=== PATIENT | female | born 1955 | race Caucasian/White ===

== ENCOUNTER 2019-12-22 07:46 | Outpatient (CLI) | payer BC, SELFPAY ==
--- NOTE | ~2019-12-22 | MM_ITS ---
EXAMINATION: MM screening [facility] BI w surinder HISTORY: Screening TECHNIQUE: Craniocaudal and mediolateral oblique 3-D tomosynthesis images were obtained and synthetic 2-D images were generated. CAD analysis was submitted and interpreted. COMPARISON: Comparison to multiple prior studies sequentially, with oldest reviewed study dated 11/10. BREAST PARENCHYMAL COMPOSITION: Breast composed of scattered areas of fibroglandular density. FINDINGS: There are stable benign-appearing bilateral breast calcifications. There are developing asy mmetry in the central aspect of the right breast, best seen on MLO view. No new masses, calcification s or architectural distortion in the left breast to suggest malignancy. IMPRESSION: 1. Developing right breast asymmetry. 2. Additional mammographic views and possible breast ultrasound are recommended. BI-RADS Category 0: Incomplete: Needs additional imaging evaluation. Reviewed, dictated and finalized at location A. IMPRESSION: 1. Developing right breast asymmetry. 2. Additional mammographic views and possible breast ultrasound are recommended . BI-RADS Category 0: Incomplete: Needs additional imaging evaluation.
== END 2019-12-22 07:47 | disposition home or self-care (01) ==
LOC: ANHIMG 07:47
PROVIDERS: PCP Family Medicine; Visit Provider Family Medicine
DX: Z12.31 Encounter for screening mammogram for malignant neoplasm of breast (principal); R92.8 Other abnormal and inconclusive findings on diagnostic imaging of breast
CPT/HCPCS: 77063; 77067

== ENCOUNTER 2020-01-13 11:19 | Outpatient (CLI) | payer BC, SELFPAY ==
--- NOTE | ~2020-01-13 | MMUS_ITS ---
EXAMINATION: MM diagnostic mammo unilat RT, US breast RT limited HISTORY: Right breast asymmetry on screening mammogram TECHNIQUE: Additional 3-D tomosynthesis images of the right breast were performed and synthetic 2-D i mages were generated. CAD analysis was submitted and interpreted. High resolution limited right breas t ultrasound was performed. COMPARISON: Prior mammograms dating back to 11/10/2012 FINDINGS: MAMMOGRAPHIC FINDINGS: An asymmetry is present in the anterior/middle third of the outer breast which has a stable appearanc e compared to prior mammograms. No suspicious mass, calcification, or architectural distortion are id entified. ULTRASOUND: There is no evidence of suspicious cystic or solid mass in the vicinity of the mammographic finding i n question. IMPRESSION: 1. No mammographic or sonographic evidence of malignancy. 2. Recommend routine screening mammography in one year. BI-RADS Category 2: Benign finding(s). Reviewed, dictated and finalized at location A. IMPRESSION: 1. No mammographic or sonographic evidence of malignancy. 2. Recommend routine screening mammography in one year. BI-RADS Category 2: Benign finding(s).
== END 2020-01-13 11:20 | disposition home or self-care (01) ==
LOC: ANHIMG 11:28
PROVIDERS: PCP Family Medicine; Visit Provider Family Medicine
DX: R92.8 Other abnormal and inconclusive findings on diagnostic imaging of breast (principal)
CPT/HCPCS: 76642; 77065

== ENCOUNTER → 2020-11-17 01:23 | Outpatient (CLI) | payer MEDICARE, SELFPAY ==
[2020-11-17 21:01] LABS: SARS-CoV-2 RNA PCR Negative
== END ==
PROVIDERS: PCP Family Medicine; Visit Provider Physician Assistant
DX: Z20.822 Contact with and (suspected) exposure to COVID-19 (principal)
CPT/HCPCS: C9803; U0003; U0005

== ENCOUNTER 2021-01-08 15:17 | Outpatient (CLI) | payer MEDICARE, BC, SELFPAY ==
--- NOTE | ~2021-01-08 | MM_ITS ---
EXAMINATION: MM screening [facility] BI w surinder HISTORY: Screening mammogram TECHNIQUE: Craniocaudal and mediolateral oblique 3-D tomosynthesis images were obtained and synthetic 2-D images were generated. CAD analysis was submitted and interpreted. COMPARISON: No prior mammogram is available for comparison at this institution. BREAST PARENCHYMAL COMPOSITION: There are scattered areas of fibroglandular density. FINDINGS: Numerous benign punctate microcalcifications of both breasts are again noted. Suggestion of breast masses in the mid to lower outer right breast (MLO Tomosynthesis image ). Di agnostic right mammogram and right breast ultrasound examination are recommended. Otherwise there is no evidence of suspicious mass, calcification, or architectural distortion to sugg est malignancy in either breast. There has been no other suspicious interval change. IMPRESSION: 1. Suggestion of right breast masses 2. Diagnostic right mammogram and right breast ultrasound examination are recommended. BI-RADS Category 0: Incomplete: Needs additional imaging evaluation. Reviewed, dictated and finalized at location A. IMPRESSION: 1. Suggestion of right breast masses 2. Diagnostic right mammogram and right breast ultrasound examination are recom mended. BI-RADS Category 0: Incomplete: Needs additional imaging evaluation.
== END 2021-01-08 15:18 | disposition home or self-care (01) ==
LOC: ANHIMG 15:20
PROVIDERS: PCP Family Medicine; Visit Provider Family Medicine
DX: Z12.31 Encounter for screening mammogram for malignant neoplasm of breast (principal); R92.8 Other abnormal and inconclusive findings on diagnostic imaging of breast
CPT/HCPCS: 77063; 77067

== ENCOUNTER 2021-01-25 11:59 | Outpatient (CLI) | payer MEDICARE, BC, SELFPAY ==
--- NOTE | ~2021-01-25 | MMUS_ITS ---
EXAMINATION: MM diagnostic lucila RT w surinder, US breast RT complete HISTORY: Suggestion of right breast masses on 01/08/2021 screening mammogram TECHNIQUE: Additional 3-D tomosynthesis images of the right breast were performed and synthetic 2-D i mages were generated. CAD analysis was submitted and interpreted. High resolution complete right akin st ultrasound including all 4 quadrants and subareolar area was performed. COMPARISON: 01/08/2021 screening mammogram 01/13/2020 diagnostic right mammogram and limited right breast ultrasound 12/22/2019 screening mammogram BREAST PARENCHYMAL COMPOSITION: There are scattered areas of fibroglandular density. FINDINGS: MAMMOGRAPHIC FINDINGS: Again noted is a focal area of increased density in the anterior central right breast on ML and MLO v iews, without apparent correlate on the CC view. There are scattered benign calcifications. ULTRASOUND: There is no evidence of suspicious solid mass lesion or suspicious shadowing of the right breast. At 6:00 near the nipple there is a 4 mm simple cyst. IMPRESSION: 1. No mammographic evidence of malignancy 2. Routine annual mammographic screening is recommended BI-RADS Category 2: Benign finding(s). Reviewed, dictated and finalized at location A. 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 No mammographic evidence of malignancy 2. Routine annual mammographic screening is recommended BI-RADS Category 2: Benign finding(s).
== END 2021-01-25 12:00 | disposition home or self-care (01) ==
LOC: ANHIMG 12:00
PROVIDERS: PCP Family Medicine; Visit Provider Family Medicine
DX: R92.8 Other abnormal and inconclusive findings on diagnostic imaging of breast (principal); N60.01 Solitary cyst of right breast
CPT/HCPCS: 76641; 77061; 77065; G0279

== ENCOUNTER → 2021-05-06 12:04 | Outpatient (CLI) | payer MEDICARE, SELFPAY ==
--- NOTE | ~2021-05-06 | XR_ITS ---
XR lumbar spine 2-3V 05/06/2021 12:35 Indication: Low back pain Procedure: 3 views lumbar spine Comparison: No prior studies for comparison. Findings: Mild dextrocurvature of the lumbar spine. There is disc narrowing at all lumbar levels, mos t advanced at L5-S1. There is multilevel facet hypertrophy with grade 1 degenerative spondylolisthesi s at L4-5. No fracture, subluxation or dislocation. There are cholecystectomy clips. Sacral foramen a re symmetric. There is atherosclerosis of the aorta. Impression: 1: Moderate lumbar spondylosis. Reviewed, dictated and finalized at location B. COORDINATOR Impression: 1: Moderate lumbar spondylosis.
--- NOTE | ~2021-05-06 | XR_ITS ---
XR hip LT 2V w AP pelvis 05/06/2021 12:35 Indication: Left hip pain Procedure: 3 views left hip Comparison: No prior studies for comparison. Findings: No fracture, subluxation or dislocation. Pelvic rings are intact. Sacral foramen are symmet jennifer. No significant soft tissue abnormality. Impression: 1: No acute bone or joint abnormality. Reviewed, dictated and finalized at location B. EWATER ANALYST Impression: 1: No acute bone or joint abnormality.
== END ==
PROVIDERS: PCP Family Medicine; Visit Provider Physician Assistant
DX: M79.605 Pain in left leg (principal); M47.896 Other spondylosis, lumbar region
CPT/HCPCS: 72100; 73502

== ENCOUNTER → 2021-05-13 10:49 | Outpatient (CLI) | payer MEDICARE, SELFPAY ==
--- NOTE | ~2021-05-13 | MR_ITS ---
EXAMINATION: MR lumbar spine wo con DATE: 05/13/2021 11:28 INDICATION: Low back pain. Left leg pain. TECHNIQUE: Magnetic resonance imaging (MRI) of the lumbar spine was performed without intravenous con trast. Sequences included sagittal T2-weighted FSE, sagittal T2-weighted FS FSE, sagittal T1-weighted FSE, and axial T2-weighted FSE. COMPARISON: Lumbar spine radiographs 05/06/2021 FINDINGS: There is 5 degrees dextrocurvature of lumbar spine. Vertebral body heights are normal. Ther e is mildly decreased disc height at L1-L2 and L3-L4 and severely decreased disc height at L5-S1. The distal spinal cord signal intensity is normal. The conus medullaris is at L1-L2. The following disc levels are specifically discussed: L1-L2: The disc is bulging. There is mild right facet joint osteoarthritis. There is no neural forami nal stenosis. There is mild central canal stenosis. L2-L3: The disc is bulging. There is mild right facet joint osteoarthritis. There is mild right neura l foraminal stenosis. There is mild central canal stenosis. L3-L4: The disc is bulging with superimposed left central extrusion with extension 2.0 cm superior ex tension and involvement of the left subarticular and foraminal zones with mass effect on the exiting left L3 nerve root. There is moderate bilateral facet joint osteoarthritis. There is mild bilateral n eural foraminal stenosis. There is mild central canal stenosis. L4-L5: The disc is bulging and has an annular fissure. There is moderate bilateral facet joint osteoa rthritis. There is mild bilateral neural foraminal stenosis. There is mild central canal stenosis. L5-S1: The disc is bulging and has an annular fissure. There is mild bilateral facet joint osteoarthr itis. There is mild right and moderate left neural foraminal stenosis. There is no central canal sten osis. IMPRESSION: 1. Severe lumbar spondylosis. Of note, an extrusion at L3-L4 exerts mass effect on the exiting left L 3 nerve root. Reviewed, dictated and finalized at location A. CTOR OF LAND IMPRESSION: 1. Severe lumbar spondylosis. Of note, an extrusion at L3-L4 exerts mass effect on the exiting left L3 nerve root.
== END ==
PROVIDERS: PCP Family Medicine; Visit Provider Physician Assistant
DX: M79.605 Pain in left leg (principal); M25.559 Pain in unspecified hip; M47.26 Other spondylosis with radiculopathy, lumbar region; M51.26 Other intervertebral disc displacement, lumbar region
CPT/HCPCS: 72148

== ENCOUNTER → 2022-04-01 13:34 | Outpatient (CLI) | payer MEDICARE, SELFPAY ==
--- NOTE | ~2022-04-01 | XR_ITS ---
XR shoulder RT min 2V DATE: 04/01/2022 13:53 INDICATION: Right shoulder pain TECHNIQUE: 4 views of right shoulder COMPARISON: None FINDINGS: There is evidence of rotator cuff atrophy. There is Mild degenerative change at the right acromioclavicular joint. No fracture, dislocation, periosteal reaction or bone destruction or abnormal soft tissue calcificati on. IMPRESSION: Mild degenerative change Probable rotator cuff atrophy Reviewed, dictated and finalized at location L. ECONOMIST
== END ==
PROVIDERS: PCP Emergency Medicine; Visit Provider Physician Assistant
DX: M25.511 Pain in right shoulder (principal); R93.6 Abnormal findings on diagnostic imaging of limbs
CPT/HCPCS: 73030

== ENCOUNTER 2022-04-10 12:35 | Emergency (ER) | payer MEDICARE, BC, SELFPAY ==
[2022-04-10] VITALS (21 sets, daily range): BP systolic 139–157; BP diastolic 70–78; PULSE 75–86; RESP 12–21; TEMP 36.9; O2SAT 99
--- NOTE | ~2022-04-10 | CT_ITS ---
EXAMINATION: CT abdomen pelvis w con DATE: 04/10/2022 14:11 INDICATION: Headache, nausea and vomiting TECHNIQUE: Computed tomography (CT) of the abdomen and pelvis was performed with 100 mL Omnipaque-350 intravenous contrast. Automated exposure control and iterative reconstruction technique were employe d. The dose-length product was 293.06 mGy-cm. COMPARISON: None FINDINGS: Mild discoid atelectasis at the lingula and right middle lobe. Heart size is normal. No pericardial o r pleural effusion. Small sliding-type hiatal hernia. Mild focal hepatic steatosis at the ligamentum teres. Cholecystectomy clips the gallbladder fossa. Spleen, pancreas, bilateral adrenal glands and le ft kidney are normal. 11 mm cyst at the upper pole of the right kidney. Bladder is normal. The uterus is not identified and has likely been surgically resected. Bowels including the appendix are normal. There is calcified atherosclerosis of the aorta and many of the other arteries. No free intraperiton eal gas or fluid. No pathologically enlarged abdominal or pelvic lymphadenopathy. Mild lumbar dextroc urvature with severe lumbosacral spondylosis. IMPRESSION: 1. No acute intra-abdominal/pelvic process. 2. Small sliding-type hiatal hernia. Reviewed, dictated and finalized at location L. R PV INSTALLER
[2022-04-10] MEDS: SODIUM CHLORIDE 0.9% IV 1,000 ML 999 ML IV CONT ×2 (13:07→15:03)
[2022-04-10] MEDS: ONDANSETRON INJ 4 MG/2 ML VIAL IV PUSH (13:07)
--- NOTE | 2022-04-10 13:07 | ED.ABDPAIN ---
HPI - Abdominal Pain General Chief Complaint: Abdominal Pain Stated Complaint: abd pain, N/V, headache Time Seen by Provider: 04/10/22 12:49 Source: RN notes reviewed History of Present Illness HPI narrative: Patient presents emergency department from home for abdominal pain. Patient states symptoms been ongoing for the past 3 days she states she is had pain across the upper abdomen described as aching in nature's been associated with numerous episodes of nausea and vomiting. States that this has been associated with subjective fevers as well as a headache she denies any chest pain or shortness of breath she denies any diarrhea states she has not had a measured temperature but is been feeling hot. Patient denies take any medication for her symptoms Related Data Home Medications Medication Instructions Recorded Confirmed cholecalciferol (vitamin D3) 25 2,000 unit PO DAILY 02/14/19 04/08/22 mcg (1,000 unit) capsule cyanocobalamin (vitamin B-12) 1,000 mcg PO DAILY 02/14/19 04/08/22 1,000 mcg capsule azelastine 137 mcg (0.1 %) nasal 137 mcg intranasal Q12H 11/11/21 04/08/22 spray aerosol ketoconazole 2 % topical cream 1 applic topical DAILY PRN 11/11/21 04/08/22 krill oil-hyaluronic cap PO 11/11/21 04/08/22 acid-astaxanthin 353 mg capsule (Move Free Ultra [place] Joint Plus) vit cap PO 11/11/21 04/08/22 C,E,zinc,Gb-lgkyn-1-lutein-zeaxanthin 250 mg-2.5 mg-0.5 mg capsule omeprazole 40 mg capsule,delayed 40 mg PO 03/13/22 04/08/22 release triamcinolone acetonide 0.1 % 1 applic topical .prn 04/07/22 04/08/22 topical cream Allergies Allergy/AdvReac Type Severity Reaction Status Date / Time cephalexin Allergy Unknown ill Verified 04/07/22 11:07 Penicillins Allergy Unknown in college Verified 04/07/22 11:07 Sulfa (Sulfonamide Allergy Unknown Skin Verified 04/07/22 11:07 Antibiotics) Reaction Review of Systems Review of Systems: Gen.: Reports subjective fevers ENT: Denies congestion Respiratory: Denies shortness of breath or cough CV: Denies chest pain or palpitations GI: See HPI denies burning, urgency, frequency or hematuria Musculoskeletal: Denies back pain or muscle pain Neuro: Reports Skin: Denies rash Except as documented, all other systems reviewed and negative [facility] Past Medical History Medical History Abnormal colonoscopy (~2006) 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 Normal colonoscopy (~2011) Surgical History Surgical History H/O: hysterectomy (~1980) Hx of cholecystectomy (~2001) Family History Family History Mother Family history of osteoporosis Family history of elevated blood lipids Family history of arthritis Father Hypertension Patient's father is Other No family history of allergies No family history of cardiovascular disease No family history of diabetes mellitus No family history of hypertension No family history of malignant neoplasm Social History Social History Smoking status: Never smoker Second hand tobacco smoke exposure: No Alcohol intake: current Substance use: never Substance use type: does not use Lack of Transportation: No Lack of Food: Never True Current Housing: I Have Housing Concerned About Future Housing: No Difficulty Paying Gas/Electric Bills: No Difficulty Paying for Meds: No Currently Unemployed: No Education: Master's Degree or Higher Difficulty w/ Childcare or Family Care: No Gender identity (if verbalized by the patient): Female Exam Narrative: APPEARANCE: No acute distress, nontoxic, resting in bed HEENT: Normocephalic, atraumatic, OMM RESPIRATORY: No respiratory distress, clear to auscultation bilaterally with no rhonchi wheezing
[2022-04-10 13:31] LABS: Basophils Percent Auto 0.3 % (0.2-1.2); Eosinophils Percent Auto 0.3 % (0-4.4); Hematocrit 46.4 % (37.0-47.0); Hemoglobin 15.3 g/dL (12.0-15.0); Immature Granulocyte Absolute 0.05 K/mm3 (0.00-0.031); Immature Granulocyte Percent A 0.4 % (0-0.5); Lymphocytes Absolute Auto 1.18 K/mm3 (0.9-3.2); Lymphocytes Percent Auto 10.2 % (18.3-44.2); Mean Corpuscular Hemoglobin 28.8 pg (26-34); Mean Corpuscular Volume 87.4 fl (80-100); Mean Platelet Volume 9.7 fl (7.4-10.4); Monocytes Percent Auto 8.4 % (2.6-8.5); Neutrophils Absolute Auto 9.3 K/mm3 (1.3-6.7); Neutrophils Percent Auto 80.4 % (45.5-73.1); Platelet Count Result 339 k/mm3 (150-375); Red Blood Count 5.31 M/mm3 (4.2-5.4); Red Cell Distribution Width 13.6 % (11.5-14.5); White Blood Count 11.6 K/mm3 (4.5-10.0)
[2022-04-10 13:46] LABS: Alanine Aminotransferase 18 U/L (6-35); Albumin Level 4.5 g/dL (3.5-5.1); Alkaline Phosphatase 63 U/L (38-126); Anion Gap 8 mmol/L (8-16); Aspartate Amino Transferase 24 U/L (14-36); Bilirubin,Total 0.9 mg/dL (0.2-1.3); Blood Urea Nitrogen 21 mg/dL (7-17); Calcium 8.9 mg/dL (8.4-10.2); Carbon Dioxide 25 mmol/L (22-30); Chloride 101 mmol/L (98-107); Estimated CRCL calculation 85 ml/min; Estimated Glomerular Filt Rate > 60; Glucose 145 mg/dL (65-110); Lipase 47 U/L (23-300); Potassium 3.3 mmol/L (3.4-5.0); Sodium 134 mmol/L (137-145)
[2022-04-10 14:05] LABS: Appearance Urine Slightly Cloudy (Clear); Bilirubin Urine 2+ (Negative); Blood Urine 1+ (Negative); Color Urine Yellow (Yellow); Glucose Urine UA 2+ mg/dL (Negative); Ketones Urine 4+ mg/dL (Negative); Leukocyte Esterase Ur Negative LEU/UL (Negative); Nitrate Urine Negative (Negative); Protein Urine 2+ mg/dL (Negative); Specific Grav Ur >= 1.030 (1.001-1.035); Urobilinogen Urine 0.2 mg/dL (<2.0)
[2022-04-10 14:13] LABS: Bacteria Urine Trace /hpf; Mucus Urine Few /lpf; Squamous Epithelial Cell Urine Moderate /hpf (Few)
[2022-04-10 14:20] LABS: Influenza A QL RT-PCR Negative (Negative); Influenza B QL RT-PCR Negative (Negative); SARS-CoV-2 RNA PCR Negative
[2022-04-10 14:33] LABS: Add Urine Microscopic? YES
[2022-04-10] MEDS: POTASSIUM CHLORIDE 20 MEQ PACKET (FOR LIQUID) PO (16:40)
== END 2022-04-10 18:58 | disposition home or self-care (01) ==
PROVIDERS: Emergency Provider Emergency Medicine; PCP Emergency Medicine
DX: R10.13 Epigastric pain (principal); R11.2 Nausea with vomiting, unspecified; Z90.710 Acquired absence of both cervix and uterus; Z20.822 Contact with and (suspected) exposure to COVID-19; K44.9 Diaphragmatic hernia without obstruction or gangrene
CPT/HCPCS: 36415; 74177; 80053; 81001; 83690; 85025; 87636; 96361; 96365; 96375; 99284; A9270; J0131; J2405; J7030; Q9967

== ENCOUNTER 2022-04-14 10:36 | Outpatient (CLI) | payer MEDICARE, BC, SELFPAY ==
--- NOTE | ~2022-04-14 | MR_ITS ---
EXAMINATION: MR shoulder RT wo con DATE: 04/14/2022 11:25 INDICATION: Right shoulder pain TECHNIQUE: Magnetic resonance imaging (MRI) of the right shoulder was performed without intravenous c ontrast. Sequences included axial PD-weighted FS FSE, coronal oblique PD-weighted FS FSE, coronal obl ique T2-weighted FS FSE, sagittal PD-weighted FS FSE, and sagittal T1-weighted SE. COMPARISON: None. FINDINGS: Coracoacromial arch: The acromion undersurface is curved in morphology (type II). Small subacromial spurs. The coracoacrom ial ligament is normal. Mild acromioclavicular osteoarthritis with small inferiorly directed osteophy dung. Rotator cuff: Large full-thickness tear involving the entire supraspinatus tendon and all but a small portion of th e posterior most infraspinatus tendon. The tear margin is retracted 4.5 cm medially to near the level of the acromioclavicular joint. The teres minor tendon is normal. To moderate subscapularis tendinop athy without tear. Moderate fatty atrophy of the supraspinatus and infraspinatus muscle bellies. Biceps tendon, glenoid labrum and glenohumeral cartilage: Moderate tendinopathy and partial-thickness tear at the junction of the intra-articular and extra art icular portions of the long head biceps tendon. Small tear at the 3:00 position of the anterior gleno id labrum at the caudal margin of with likely a normal anterosuperior sublabral foramen. Mild partial -thickness cartilage loss with smooth chondral surface along the cephalad third of the glenoid. Addit ional partial thickness cartilage loss along the apex of the humeral head which abuts the undersurfac e of the acromion. Fluid: Small glenohumeral joint effusion which extends into the long head biceps tendon sheath as well as th e full-thickness rotator cuff tear to communicate with a small amount of fluid in the subacromial/sub deltoid bursa. There is mild synovitis at the recess of the joint space. No loose osteochondral leny s. Bones: Cephalad subluxation of the humeral head with respect to the glenoid resulting from the full-thicknes s rotator cuff tear. No fracture or pathologic marrow replacing process. Mild hypertrophic and cystli ke changes along the greater tuberosity likely related to chronic rotator cuff disease. IMPRESSION: 1. Mild to moderate rotator cuff tendinopathy with large full-thickness rotator cuff tear involving t he entire supraspinatus and all but a small portion of the posterior most infraspinatus tendon. 2. Mild glenohumeral osteoarthritis with small tear at the 3:00 position of the anterior glenoid. 3. Moderate tendinopathy and partial-thickness tear at the junction of the intra-articular and extra articular portions of the long head biceps tendon. 4. Mild acromioclavicular osteoarthritis. Reviewed, dictated and finalized at location A. ANET SPECIALIST IMPRESSION: 1. Mild to moderate rotator cuff tendinopathy with large full-thickness rotator cuff tear involving the entire supraspinatus and all but a small portion of th e posterior most infraspinatus tendon. 2. Mild glenohumeral osteoarthritis with small tear at the 3:00 position of the anterior glenoid. 3. Moderate tendinopathy and partial-thickness tear at the junction of the intr a-articular and extra articular portions of the long head biceps tendon. 4. Mild acromioclavicular osteoarthritis.
== END 2022-04-14 10:37 ==
PROVIDERS: PCP Emergency Medicine; Visit Provider Orthopaedic Surgery
DX: M19.011 Primary osteoarthritis, right shoulder (principal)
CPT/HCPCS: 73221

== ENCOUNTER 2022-04-15 16:23 | Inpatient (IN) | payer MEDICARE, BC, SELFPAY ==
--- NOTE | ~2022-04-15 | CT_ITS ---
EXAMINATION: CT abdomen pelvis w con DATE: 04/15/2022 21:52 INDICATION: right lower abdominal pain TECHNIQUE: Computed tomography (CT) of the abdomen and pelvis was performed with 100 mL Omnipaque-350 intravenous contrast. Automated exposure control and iterative reconstruction technique were employe d. The dose-length product was 275.87 mGy-cm. COMPARISON: 04/10/2022. FINDINGS: Lower thorax: Moderate hiatal hernia. Bibasilar lung scarring. Liver: Enlarged. Biliary/Gallbladder: Gallbladder is absent. No bile duct dilation. Pancreas: No mass or duct dilation. Spleen: Normal. Adrenals:No mass. Kidneys: No suspicious mass, stone, or hydronephrosis. Simple right upper pole cyst. GI tract: Moderate distal esophageal and gastric wall edema. No small or large bowel dilation. Normal appendix. Mesentery/Peritoneum: No ascites, mass, or free air. Retroperitoneum: No mass. Atherosclerotic abdominal aortic and/or arterial calcifications. Pelvis: Surgically absent uterus. Soft Tissues: Soft tissues and body wall unremarkable. Bones: No acute osseous finding. IMPRESSION: Esophagitis/gastritis. Hepatomegaly. No other acute abdominopelvic process detected. Reviewed, dictated and finalized at location [facility] IMPRESSION: Esophagitis/gastritis. Hepatomegaly. No other acute abdominopelvic process dete cted.
[2022-04-15 16:31] VITALS: BP 92/60; PULSE 83; RESP 16; TEMP 36.4; O2SAT 100
[2022-04-15 20:08] LABS: Appearance Urine Clear (Clear); Bilirubin Urine 2+ (Negative); Blood Urine Negative (Negative); Glucose Urine UA Trace mg/dL (Negative); Ketones Urine 4+ mg/dL (Negative); Leukocyte Esterase Ur 1+ LEU/UL (Negative); Nitrate Urine Negative (Negative); Protein Urine 2+ mg/dL (Negative); pH Urine 6.5 (5.0-9.0)
[2022-04-15 20:12] LABS: Bacteria Urine 1+ /hpf; Mucus Urine Heavy /lpf; Squamous Epithelial Cell Urine Moderate /hpf (Few); WBC Urine 21-30 /hpf
[2022-04-15] MEDS: ONDANSETRON INJ 4 MG/2 ML VIAL IV PUSH (20:16)
[2022-04-15 20:17] LABS: Add Urine Microscopic? YES; Color Urine Dark Yellow (Yellow)
[2022-04-15] MEDS: SODIUM CHLORIDE 0.9% IV 2,000 ML 999 ML IV CONT (20:17)
[2022-04-15 20:20] VITALS: BP 108/54; PULSE 73; RESP 18; O2SAT 100
[2022-04-15 20:30] VITALS: BP 103/49; PULSE 66
[2022-04-15 20:33] LABS: Basophils Absolute Auto 0.1 K/mm3 (0.0-0.1); Eosinophils Absolute Auto 0.3 K/mm3 (0-0.3); Eosinophils Percent Auto 2.5 % (0-4.4); Hematocrit 44.3 % (37.0-47.0); Hemoglobin 14.8 g/dL (12.0-15.0); Immature Granulocyte Absolute 0.04 K/mm3 (0.00-0.031); Immature Granulocyte Percent A 0.4 % (0-0.5); Lymphocytes Absolute Auto 3.15 K/mm3 (0.9-3.2); Lymphocytes Percent Auto 30.9 % (18.3-44.2); Mean Corpuscular HGB Conc 33.4 g/dl (32-36); Mean Corpuscular Hemoglobin 29.1 pg (26-34); Mean Corpuscular Volume 87.2 fl (80-100); Mean Platelet Volume 9.7 fl (7.4-10.4); Monocytes Absolute Auto 0.9 K/mm3 (0.1-0.6); Monocytes Percent Auto 8.7 % (2.6-8.5); Neutrophils Absolute Auto 5.8 K/mm3 (1.3-6.7); Neutrophils Percent Auto 56.5 % (45.5-73.1); Platelet Count Result 353 k/mm3 (150-375); Red Blood Count 5.08 M/mm3 (4.2-5.4); Red Cell Distribution Width 13.3 % (11.5-14.5); White Blood Count 10.2 K/mm3 (4.5-10.0)
[2022-04-15 20:35] VITALS: BP 82/60; PULSE 78
[2022-04-15 20:40] VITALS: BP 87/58; PULSE 86
[2022-04-15 20:49] LABS: Alanine Aminotransferase 16 U/L (6-35); Albumin Level 3.6 g/dL (3.5-5.1); Alkaline Phosphatase 58 U/L (38-126); Anion Gap 6 mmol/L (8-16); Aspartate Amino Transferase 20 U/L (14-36); Bilirubin,Total 0.7 mg/dL (0.2-1.3); Blood Urea Nitrogen 14 mg/dL (7-17); Calcium 8.2 mg/dL (8.4-10.2); Carbon Dioxide 30 mmol/L (22-30); Chloride 99 mmol/L (98-107); Estimated CRCL calculation 85 ml/min; Estimated Glomerular Filt Rate > 60; Glucose 124 mg/dL (65-110); Lipase 46 U/L (23-300); Potassium 2.7 mmol/L (3.4-5.0); Sodium 135 mmol/L (137-145)
--- NOTE | 2022-04-15 20:59 | ED.NAVMDI ---
HPI - Nausea/Vomiting/Diarrhea General Chief complaint: Nausea/Vomiting/Diarrhea Stated complaint: abd pain Time Seen by Provider: 04/15/22 19:41 Source: patient and RN notes reviewed Mode of arrival: ambulatory Limitations: no limitations History of Present Illness HPI Narrative: This is a 66 year old female who presents for evaluation of nausea, vomiting and weakness. Patient states starting 1 week ago he developed upper abdominal pain with multiple episodes of bilious nonblood emesis. She reports continued intermittent nausea and intermittent epigastric abdominal pain. Her pain seems to present with eating and drinking. She denies having abdominal pain currently. She denies vomiting in 2 days. She reports poor appetite and decreased PO intake. Her reports patient having weakness from dehydration. Patient states she has not had a bowel movement in 1 week. She also reports intermittent headache but denies having headache since yesterday. She denies focal weakness to describe stroke. She has been unable to take her maintenance medication in 1 week. Related Data Home Medications Medication Instructions Recorded Confirmed cholecalciferol (vitamin D3) 25 2,000 unit PO DAILY 02/14/19 04/16/22 mcg (1,000 unit) capsule cyanocobalamin (vitamin B-12) 1,000 mcg PO DAILY 02/14/19 04/16/22 1,000 mcg capsule azelastine 137 mcg (0.1 %) nasal 137 mcg intranasal Q12H 11/11/21 04/16/22 spray aerosol ketoconazole 2 % topical cream 1 applic topical DAILY PRN Wound 11/11/21 04/16/22 Healing krill oil-hyaluronic 1 cap PO DAILY 11/11/21 04/16/22 acid-astaxanthin 353 mg capsule (Move Free Ultra [place] Joint Plus) vit 1 cap PO DAILY 11/11/21 04/16/22 C,E,zinc,Bp-ahtjs-6-lutein-zeaxanthin 250 mg-2.5 mg-0.5 mg capsule omeprazole 40 mg capsule,delayed 40 mg PO DAILY 03/13/22 04/16/22 release guaifenesin 600 mg tablet, 600 mg PO HS 04/16/22 04/16/22 extended release 12 hr (Mucinex) magnesium 250 mg tablet 250 mg PO BID 04/16/22 04/16/22 sumatriptan succinate 25 mg tablet See Rx Instructions .Route 04/16/22 04/16/22 .COMPLEX PRN Migraine Headache vitamins A,C,B-mujr-dsxqtx 2,148 1 tablet PO BID 04/16/22 04/16/22 mcg-113 mg-45 mg-17.4 mg tablet (PreserVision AREDS) Allergies Allergy/AdvReac Type Severity Reaction Status Date / Time cephalexin Allergy Unknown ill Verified 04/15/22 13:03 Penicillins Allergy Unknown in college Verified 04/15/22 13:03 Sulfa (Sulfonamide Allergy Unknown Skin Verified 04/15/22 13:03 Antibiotics) Reaction Review of Systems Constitutional: Constitutional: Reports fatigue and Reports weakness Cardiovascular: Cardiovascular: Denies syncope, Denies rapid heart rate, Denies irregular heart rhythm, Denies leg edema and Denies dyspnea Respiratory: Respiratory: Denies chest congestion, Denies hemoptysis, Denies excessive phlegm production and Denies dyspnea Gastrointestinal: Gastrointestinal: Reports abdominal pain, Denies hematochezia, Denies diarrhea, Reports nausea and Reports vomiting Genitourinary: Genitourinary: Denies hematuria, Denies dysuria and Reports flank pain Musculoskeletal: Musculoskeletal: Reports back pain, Denies joint swelling, Denies loss of height and Denies muscle weakness Neurologic: Reports dizziness, Denies syncope, Denies focal weakness and Denies weakness PMFSH Past Medical History Medical History Abnormal colonoscopy (~2006) Feeling of incomplete bladder emptying 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
--- NOTE | 2022-04-15 22:42 | PM.IMHP ---
H&P: HPI History of Present Illness Date/Time: 04/15/22 22:42 Chief Complaint: Nausea and vomiting Narrative: This is a 66-year-old female with past medical history significant for migraine headache, GERD, type diabetes mellitus, hypertension. Patient presents to the emergency room due to 1 week of nausea and vomiting unable to keep anything down, has had sweats, no chills, no fevers, no pain or burning with urination, no cough, no sputum production. In emergency room patient was found to be orthostatic. Preliminary workup was significant for potassium of 2.7 a urinalysis showed numerous WBCs present. A CT of abdomen and pelvis was reported as: MPRESSION: Esophagitis/gastritis. Hepatomegaly. No other acute abdominopelvic process detected. Review of Systems Review of Systems: Nausea, vomiting, sweats Constitutional: Constitutional: Denies chills, Denies fever(s), Denies night sweats and Reports poor appetite Eyes: Eyes: Denies change in vision ENT: Denies dysphagia and Denies odynophagia Cardiovascular: Cardiovascular: Denies chest pain, Denies leg edema and Denies radiating jaw, neck or arm pain Respiratory: Respiratory: Denies chest congestion, Denies cough, Denies excessive phlegm production, Denies pain on inspiration and Denies dyspnea on exertion Gastrointestinal: Gastrointestinal: Denies abdominal pain, Denies dyspepsia, Denies heartburn, Denies diarrhea, Reports nausea and Reports vomiting Genitourinary: Genitourinary: Denies dysuria Musculoskeletal: Musculoskeletal: Reports myalgias Integumentary/Breasts: Skin/Breast: Denies rash Neurologic: Denies focal weakness and Denies Sensory deficit (Neuro) Psychiatric: Psychiatric: Reports no additional psychiatric complaints and Reports as per HPI Endocrine: Endocrine: Denies cold intolerance, Denies flushing, Denies heat intolerance, Denies polyphagia, Denies polydipsia and Denies palpitations Hematologic/Lymphatic: Hematologic/Lymphatic: Reports no additional hematologic/lymphatic complaints and Reports as per HPI Allergic/Immunologic: Allergic/Immunologic: Reports no additional allergic/immunologic complaints and Reports as per HPI PMFSH Past Medical History Medical History Abnormal colonoscopy (~2006) Feeling of incomplete bladder emptying retirement use of drug Normal colonoscopy (~2011) Surgical History Surgical History H/O: hysterectomy (~1980) Hx of cholecystectomy (~2001) Family History Family History Mother Family history of osteoporosis Family history of elevated blood lipids Family history of arthritis Father Hypertension Patient's father is Other No family history of allergies No family history of cardiovascular disease No family history of diabetes mellitus No family history of hypertension No family history of malignant neoplasm Social History Social History Smoking status: Never smoker Second hand tobacco smoke exposure: No Alcohol intake: never Substance use: never Substance use type: does not use Lack of Transportation: No Lack of Food: Never True Current Housing: I Have Housing Concerned About Future Housing: No Difficulty Paying Gas/Electric Bills: No Difficulty Paying for Meds: No Currently Unemployed: No Education: Master's Degree or Higher Difficulty w/ Childcare or Family Care: No Gender identity (if verbalized by the patient): Female Spiritual care concerns: No Meds Home Medications and Allergies Home Medications Medication Instructions Recorded Confirmed Type cholecalciferol (vitamin D3) 25 2,000 unit PO DAILY 02/14/19 04/16/22 History mcg (1,000 unit) capsule cyanocobalamin (vitamin B-12) 1,000 mcg PO DAILY 02/14/19
[2022-04-15] MEDS: POTASSIUM CHLORIDE 20 MEQ PACKET (FOR LIQUID) 40 MEQ PO (22:55)
[2022-04-15] MEDS: KCL 20 MEQ/D5/0.45% SOD CHL 1,000 ML 125 ML IV CONT (23:46)
[2022-04-15 23:52] VITALS: BP 107/77; PULSE 71; RESP 16; O2SAT 97
[2022-04-16] VITALS (13 sets, daily range): BP systolic 98–156; BP diastolic 46–85; PULSE 64–84; RESP 16–18; TEMP 36.4–36.8; O2SAT 98–100; BMI 21.1
[2022-04-16 00:31] LABS: Influenza A QL RT-PCR Negative (Negative); Influenza B QL RT-PCR Negative (Negative); RSV RNA, RT-PCR Negative (Negative); SARS-CoV-2 RNA PCR Negative
--- NOTE | 2022-04-16 00:42 | ADMGEN ---
This patient, Hue Dong, was admitted to Medical Room 349-01. Patient/family oriented to hospital policies and general routines including ID bracelet, bed and alarms, visiting hours, pain management, procedures, bathroom and other care routines, personal items, smoking policy, room service/diet, and visiting hours. Information on how to activate the Rapid Response Team has been discussed. Patient/Family are encouraged to report perceived risks to care and to ask questions if they do not understand what they are told or what they should do.
[2022-04-16] MEDS: BELLADONNA ALK/PHENOB ELIX 10 ML, MAG HYDROX/ALUMINUM HYD/SIMETH 30 ML, LIDOCAINE HCL 2... PO (01:53)
[2022-04-16 05:36] LABS: Basophils Absolute Auto 0.1 K/mm3 (0.0-0.1); Basophils Percent Auto 1.4 % (0.2-1.2); Eosinophils Absolute Auto 0.3 K/mm3 (0-0.3); Eosinophils Percent Auto 3.4 % (0-4.4); Hematocrit 43.8 % (37.0-47.0); Hemoglobin 14.3 g/dL (12.0-15.0); Immature Granulocyte Absolute 0.03 K/mm3 (0.00-0.031); Immature Granulocyte Percent A 0.4 % (0-0.5); Lymphocytes Absolute Auto 2.39 K/mm3 (0.9-3.2); Lymphocytes Percent Auto 28.4 % (18.3-44.2); Mean Corpuscular HGB Conc 32.6 g/dl (32-36); Mean Corpuscular Hemoglobin 29.1 pg (26-34); Mean Corpuscular Volume 89.2 fl (80-100); Mean Platelet Volume 9.5 fl (7.4-10.4); Monocytes Absolute Auto 0.8 K/mm3 (0.1-0.6); Monocytes Percent Auto 9.6 % (2.6-8.5); Neutrophils Absolute Auto 4.8 K/mm3 (1.3-6.7); Neutrophils Percent Auto 56.8 % (45.5-73.1); Platelet Count Result 349 k/mm3 (150-375); Red Blood Count 4.91 M/mm3 (4.2-5.4); Red Cell Distribution Width 13.6 % (11.5-14.5); White Blood Count 8.4 K/mm3 (4.5-10.0)
[2022-04-16 05:47] LABS: Alanine Aminotransferase 19 U/L (6-35); Albumin Level 3.6 g/dL (3.5-5.1); Alkaline Phosphatase 50 U/L (38-126); Anion Gap 5 mmol/L (8-16); Aspartate Amino Transferase 26 U/L (14-36); Bilirubin,Total 0.7 mg/dL (0.2-1.3); Blood Urea Nitrogen 12 mg/dL (7-17); Calcium 7.7 mg/dL (8.4-10.2); Carbon Dioxide 27 mmol/L (22-30); Chloride 101 mmol/L (98-107); Estimated CRCL calculation 89 ml/min; Estimated Glomerular Filt Rate > 60; Glucose 118 mg/dL (65-110); Potassium 3.2 mmol/L (3.4-5.0); Sodium 133 mmol/L (137-145)
[2022-04-16] MEDS: SUCRALFATE SUSP 100 MG/ML 10 ML UDC 1000 MG PO ×2 (06:21→21:32)
[2022-04-16] MEDS: LEVOTHYROXINE SODIUM 125 MCG TABLET PO (06:21)
[2022-04-16] MEDS: ONDANSETRON INJ 4 MG/2 ML VIAL IV PUSH ×2 (06:25→13:30)
[2022-04-16] MEDS: AZELASTINE HCL NASAL 0.1% 137 MCG/SPR 30 ML BTL 1 SPRAY NASAL ×2 (09:58→21:31)
[2022-04-16] MEDS: FLUTICASONE PROPIONATE 0.05% NA SPR 16 GM BTL (*BKC) 2 SPRAY NASAL (09:58)
[2022-04-16] MEDS: PANTOPRAZOLE SODIUM IV 40 MG VIAL IV PUSH ×2 (09:58→21:32)
[2022-04-16] MEDS: ENOXAPARIN 40 MG/0.4 ML SYRINGE SUB-Q (09:58)
[2022-04-16 10:29] LABS: Glucose Point of Care 183 mg/dl (65-105)
--- NOTE | 2022-04-16 11:25 | PC.NURSE ---
[facility] was down. per pharmacy, meds can be seen in MAR just not scanned in. all meds and dosage verified with pt. pt gave all correct identifiers. morning meds given at 0958, except those that are PO. pt c/o nausea and vomiting this morning. per hospitalistlc, hold all PO meds.
[2022-04-16 12:24] LABS: Glucose Point of Care 163 mg/dl (65-105)
--- NOTE | 2022-04-16 14:42 | PM.IMPN ---
Progress Note: A&P Assessment and Plan (1) Intractable nausea and vomiting: Code(s): R11.2 - Nausea with vomiting, unspecified Status: Acute Assessment and Plan: Patient presented with nausea and vomiting x1 week. continue with NPO diet except ice chips continue IV fluids while NPO antiemetics as needed appreciate GI recommendations CT demonstrates hepatomegaly and esophagitis/ gastritis with no acute abdominopelvic process (2) Epigastric pain: Code(s): R10.13 - Epigastric pain Status: Acute Assessment and Plan: Patient complains of epigastric discomfort CT of the abdomen/pelvis reveals esophagitis/gastritis which could be contributing to symptoms. continue pantoprazole. patient does take daily NSAIDs which are on hold at this time lipase is within normal limits appreciate GI recommendations (3) Dehydration: Code(s): E86.0 - Dehydration Status: Acute Assessment and Plan: secondary to persistent nausea /vomiting continue with IV fluid rehydration check orthostatic (4) Hypokalemia: Code(s): E87.6 - Hypokalemia Status: Acute Assessment and Plan: potassium improved to 3.2 today administer 20 mEq KCl (5) UTI (urinary tract infection): Code(s): N39.0 - Urinary tract infection, site not specified Status: Acute Assessment and Plan: patient with UTI approximately 3 weeks ago and recently completed course of antibiotics. UA abnormal on presentation urine culture is pending patient has been started on Levaquin, will continue at this time while awaiting culture results (6) Type 2 diabetes mellitus with unspecified complications: Code(s): E11.8 - Type 2 diabetes mellitus with unspecified complications Status: Acute Assessment and Plan: blood sugars have been reasonably controlled. A1c is 6.1 continue Accu-Cheks, sliding scale insulin, and hypoglycemic protocol home metformin and Jardiance on hold monitor glucose trends (7) Meniere disease: Code(s): H81.09 - Meniere's disease, unspecified ear Status: Chronic Assessment and Plan: no acute issues Subjective Date/time seen: 04/16/22 14:42 Interval history: date of service: 04/16/2022 Hue Dong is a 66-year-old female with a history of cholecystectomy, type 2 diabetes mellitus, hypertension, vitamin B12 deficiency, hyperlipidemia who is seen in follow-up for nausea and vomiting. She states that her nausea is a bit better this morning. She has not had any episodes of emesis today low reports that she has had ongoing nausea and vomiting for 1 week. She has been mostly having bilious emesis. She denies hematemesis or coffee-ground emesis. She was previously having fevers and chills earlier in the week but states this has resolved. She endorses epigastric abdominal pain That she describes as a gnawing discomfort with occasional episodes of stabbing pain.. She has not been able to keep any food down and has only been tolerating very little liquid. She denies melena or hematochezia. She had a bowel movement today. States this was accompanied by lower abdominal pain that resolved after she had her bowel movement. She denies straining for with her stools. She occasionally feels dizzy and lightheaded since she has been dehydrated and not keeping down fluids. She denies shortness of breath, chest pain, or palpitations. Review of Systems Review of Systems: All systems reviewed & are unremarkable except as noted in HPI and below Exam Narrative: General: Thin, well-appearing 66-year-old female, sitting up in bed, comfortable, NARD Neuro: awake, alert and oriented x4, speech clear, no focal neuro deficits noted HEENMT: normocephalic, atraumatic, EOMI, sclerae anicteric Respiratory: clear to auscultation bilaterally, nonlabored breathing Cardio: regular rate, regular rhythm
[2022-04-16 17:33] LABS: Glucose Point of Care 134 mg/dl (65-105)
[2022-04-16] MEDS: SODIUM CHLORIDE 0.9% IV 1,000 ML 75 ML IV CONT (17:54)
[2022-04-16] MEDS: POTASSIUM CHLORIDE 20 MEQ TABLET PO (17:55)
[2022-04-16 21:01] LABS: Glucose Point of Care 113 mg/dl (65-105)
[2022-04-16] MEDS: guaiFENesin 12 HR 600 MG TABCR PO (22:38)
[2022-04-17] VITALS (8 sets, daily range): BP systolic 104–151; BP diastolic 51–63; PULSE 58–83; RESP 16–18; TEMP 36.4–36.9; O2SAT 98–100
[2022-04-17 05:38] LABS: Hemoglobin 11.8 g/dL (12.0-15.0); Mean Corpuscular HGB Conc 32.8 g/dl (32-36); Mean Corpuscular Hemoglobin 28.6 pg (26-34); Mean Corpuscular Volume 87.4 fl (80-100); Mean Platelet Volume 9.3 fl (7.4-10.4); Platelet Count Result 248 k/mm3 (150-375); Red Blood Count 4.12 M/mm3 (4.2-5.4); Red Cell Distribution Width 13.2 % (11.5-14.5); White Blood Count 6.5 K/mm3 (4.5-10.0)
[2022-04-17 05:56] LABS: Anion Gap 4 mmol/L (8-16); Blood Urea Nitrogen 7 mg/dL (7-17); Calcium 7.1 mg/dL (8.4-10.2); Carbon Dioxide 25 mmol/L (22-30); Chloride 107 mmol/L (98-107); Estimated CRCL calculation 89 ml/min; Estimated Glomerular Filt Rate > 60; Glucose 105 mg/dL (65-110); Magnesium 1.8 mg/dL (1.6-2.3); Sodium 136 mmol/L (137-145)
[2022-04-17] MEDS: LEVOTHYROXINE SODIUM 125 MCG TABLET PO (06:30)
[2022-04-17] MEDS: SUCRALFATE SUSP 100 MG/ML 10 ML UDC 1000 MG PO ×2 (06:30→11:48)
[2022-04-17] MEDS: SODIUM CHLORIDE 0.9% IV 1,000 ML 75 ML IV CONT (06:31)
[2022-04-17] MEDS: AZELASTINE HCL NASAL 0.1% 137 MCG/SPR 30 ML BTL 1 SPRAY NASAL ×2 (08:42→21:28)
[2022-04-17] MEDS: FLUTICASONE PROPIONATE 0.05% NA SPR 16 GM BTL (*BKC) 2 SPRAY NASAL (08:42)
[2022-04-17] MEDS: PANTOPRAZOLE SODIUM IV 40 MG VIAL IV PUSH ×2 (08:43→21:27)
[2022-04-17] MEDS: CYANOCOBALAMIN 1,000 MCG TABLET 1000 MCG PO (08:44)
[2022-04-17] MEDS: OMEGA 3 POLYUNSAT FATTY ACIDS 1 GM CAP 2 GM PO (08:44)
[2022-04-17] MEDS: MAGNESIUM OXIDE 200 MG TABLET PO (08:44)
[2022-04-17] MEDS: FAMOTIDINE 20 MG TABLET PO (08:45)
[2022-04-17] MEDS: CHOLECALCIFEROL 1,000 UNITS TABLET 2000 UNITS PO (08:45)
[2022-04-17] MEDS: atenoloL 25 MG TABLET BY MOUTH (08:45)
[2022-04-17] MEDS: estradioL 0.5 MG TABLET PO (08:45)
[2022-04-17] MEDS: ENOXAPARIN 40 MG/0.4 ML SYRINGE SUB-Q (08:46)
[2022-04-17 08:56] LABS: Glucose Point of Care 120 mg/dl (65-105)
--- NOTE | 2022-04-17 09:40 | P.CDI_ITS ---
CDI Query Clarification Request Severe malnutrition <Lily Santana PA-C - Last Filed: 05/02/22 16:35> Clarified Diagnosis Clarified Diagnosis: Per Nutritions note: Nutritional Diagnostic Statement Severe Malnutrition of acute illness as related to intake/ hydration status as evidence by 7% weight loss in a week and < 75 % of estimated energy requirement in the past 7 days. BMI 21.1 Please specify severity of Protein Calorie Malnutrition if known : * Mild * Moderate * Severe * Other/Unspecified <Rosette Roe RN - Last Filed: 04/22/22 08:22>
[2022-04-17] MEDS: POTASSIUM CHLORIDE 20 MEQ PACKET (FOR LIQUID) 40 MEQ PO (11:48)
[2022-04-17 12:17] LABS: Glucose Point of Care 110 mg/dl (65-105)
--- NOTE | 2022-04-17 14:28 | WPDGICN ---
Assessment and Plan Assessment and plan (1) Nausea and vomiting in adult: Code(s): R11.2 - Nausea with vomiting, unspecified Status: Acute Assessment and Plan: continue with medical management including hydration, antiemetics, prn will do egd in am, assess if esophagitis, ulcer, etc (2) Dehydration: Code(s): E86.0 - Dehydration Status: Acute Assessment and Plan: treated poor oral intake (3) Epigastric pain: Code(s): R10.13 - Epigastric pain Status: Acute Assessment and Plan: egd (4) Hypokalemia: Code(s): E87.6 - Hypokalemia Status: Acute Assessment and Plan: treated (5) Abnormal CT scan, esophagus: Code(s): R93.3 - Abnormal findings on diagnostic imaging of other parts of digestive tract Status: Acute Assessment and Plan: possible esophagitis/gastritis per ct scan GI Consult Note Consult date/time: 04/17/22 14:28 Reason for consult: nausea and vomiting HPI: Hue Dong is a 66 year old female with past medical history significant for migraine headache, GERD using omeprazole, type diabetes mellitus, hypertension.?She came to ER with almost 1 week of intractable nausea and vomiting, emesis almost after eating that causes also epigastric pain, she is dehydrated and finally admitted to hospital. Still nauseous with poor appetite. She had EGD but years ago, last colonoscopy 10 years ago and about 2 years ago negative cologuard. In emergency room patient was found to be orthostatic, also low potassium of 2.7, normal lipase, urinalysis showed numerous WBCs present.? A CT of abdomen and pelvis reviewed and showed Esophagitis/gastritis.?She is post cholecystectomy and hysterectomy. Review of Systems Constitutional: Constitutional: Reports fatigue Eyes: Eyes: Denies blurry vision ENT: Reports Normal hearing present Cardiovascular: Cardiovascular: Denies chest pain Respiratory: Respiratory: Denies chest congestion Gastrointestinal: Gastrointestinal: Reports abdominal pain, Reports nausea and Reports vomiting Genitourinary: Genitourinary: Denies hematuria Musculoskeletal: Musculoskeletal: Denies arthralgias Neurologic: Denies Abnormal speech present Psychiatric: Psychiatric: Reports no additional psychiatric complaints PMFSH Past Medical History Medical History (Updated 04/17/22 @ 14:32 by Remi Tuttle MD) Abnormal colonoscopy (~2006) Abnormal CT scan, esophagus Feeling of incomplete bladder emptying senior care use of drug Nausea and vomiting in adult Normal colonoscopy (~2011) Surgical History Surgical History H/O: hysterectomy (~1980) Hx of cholecystectomy (~2001) Family History Family History Mother Family history of osteoporosis Family history of elevated blood lipids Family history of arthritis Father Hypertension Patient's father is Other No family history of allergies No family history of cardiovascular disease No family history of diabetes mellitus No family history of hypertension No family history of malignant neoplasm Social History Social History Smoking status: Never smoker Second hand tobacco smoke exposure: No Alcohol intake: never Substance use: never Substance use type: does not use Lack of Transportation: No Lack of Food: Never True Current Housing: I Have Housing Concerned About Future Housing: No Difficulty Paying Gas/Electric Bills: No Difficulty Paying for Meds: No Currently Unemployed: No Education: Master's Degree or Higher Difficulty w/ Childcare or Family Care: No Gender identity (if verbalized by the patient): Female Spiritual care concerns: No Meds Home Medications and Allergies Home Medications Medication Instructions
--- NOTE | 2022-04-17 15:22 | PM.IMPN ---
Progress Note: A&P Assessment and Plan (1) Intractable nausea and vomiting: Code(s): R11.2 - Nausea with vomiting, unspecified Status: Acute Assessment and Plan: Patient presented with nausea and vomiting x1 week. no episodes of emesis today. Nausea has improved advance to clear liquid diet continue gentle IV fluids until better tolerating diet antiemetics as needed appreciate GI recommendations CT demonstrates hepatomegaly and esophagitis/ gastritis with no acute abdominopelvic process (2) Epigastric pain: Code(s): R10.13 - Epigastric pain Status: Acute Assessment and Plan: Patient complains of epigastric discomfort CT of the abdomen/pelvis reveals esophagitis/gastritis which could be contributing to symptoms. continue pantoprazole. patient does take daily NSAIDs which are on hold at this time. no evidence of GI bleeding lipase is within normal limits appreciate GI recommendations planning for EGD tomorrow (3) Dehydration: Code(s): E86.0 - Dehydration Status: Acute Assessment and Plan: secondary to persistent nausea /vomiting improving continue with gentle IV fluid rehydration (4) Hypokalemia: Code(s): E87.6 - Hypokalemia Status: Acute Assessment and Plan: potassium 3.0 today administer 40 mEq KCl (5) UTI (urinary tract infection): Code(s): N39.0 - Urinary tract infection, site not specified Status: Resolved Assessment and Plan: patient with UTI approximately 3 weeks ago and recently completed course of antibiotics. UA abnormal on presentation however urine culture is negative will discontinue Levaquin at this time (6) Type 2 diabetes mellitus with unspecified complications: Code(s): E11.8 - Type 2 diabetes mellitus with unspecified complications Status: Acute Assessment and Plan: blood sugars have been reasonably controlled. A1c is 6.1 continue Accu-Cheks, sliding scale insulin, and hypoglycemic protocol home metformin and Jardiance on hold monitor glucose trends (7) Meniere disease: Code(s): H81.09 - Meniere's disease, unspecified ear Status: Chronic Assessment and Plan: no acute issues Subjective Date/time seen: 04/17/22 15:22 Interval history: Date of service: 04/17/2022 Hue Dong is a 66-year-old female with a history of cholecystectomy, type 2 diabetes mellitus, hypertension, vitamin B12 deficiency, hyperlipidemia who is seen in follow-up for nausea and vomiting. she feels somewhat improved today. She states that yesterday morning she vomited up the saltine crackers that she had the day prior while in the ER. After this episode of emesis, she actually felt improved and felt that her nausea was improved. She was able to tolerate ice chips yesterday and is tolerating clear liquids today. She endorses 310 epigastric discomfort. This morning she woke feeling sweaty but denies any episodes of fever or chills. She has not had a bowel movement today. She denies any urinary symptoms. She does complain of 4/10 right shoulder pain which is a chronic issue for her given her recent rotator cuff injury. Review of Systems Review of Systems: All systems reviewed & are unremarkable except as noted in HPI and below Exam Narrative: General: thin, well-appearing 66-year-old female, sitting up in bed, comfortable, NARD Neuro: awake, alert and oriented x4, speech clear, no focal neuro deficits noted HEENMT: normocephalic, atraumatic, EOMI, sclerae anicteric Respiratory: clear to auscultation bilaterally, nonlabored breathing Cardio: regular rate, regular rhythm with S1-S2 Abdomen: nondistended, normoactive bowel sounds, soft, mildly tender to palpation of epigastric region Extremities: no edema, erythema, or tenderness to palpation, DP pulses 2+ bilaterally Skin: no rashes or lesions, warm and dry Psych: tomas
[2022-04-17 17:03] LABS: Glucose Point of Care 129 mg/dl (65-105)
[2022-04-17] MEDS: ONDANSETRON INJ 4 MG/2 ML VIAL IV PUSH (17:38)
[2022-04-17 21:00] LABS: Glucose Point of Care 153 mg/dl (65-105)
[2022-04-18] VITALS (14 sets, daily range): BP systolic 70–133; BP diastolic 31–62; PULSE 50–76; RESP 13–23; TEMP 36.1–36.7; O2SAT 98–100
[2022-04-18] MEDS: ONDANSETRON INJ 4 MG/2 ML VIAL IV PUSH (02:11)
[2022-04-18] MEDS: SODIUM CHLORIDE 0.9% IV 1,000 ML 60 ML IV CONT (02:12)
[2022-04-18 05:53] LABS: Hemoglobin 12.7 g/dL (12.0-15.0); Mean Corpuscular HGB Conc 33.4 g/dl (32-36); Mean Corpuscular Hemoglobin 28.7 pg (26-34); Mean Platelet Volume 9.8 fl (7.4-10.4); Platelet Count Result 315 k/mm3 (150-375); Red Blood Count 4.42 M/mm3 (4.2-5.4); Red Cell Distribution Width 13.2 % (11.5-14.5); White Blood Count 7.5 K/mm3 (4.5-10.0)
[2022-04-18] MEDS: LEVOTHYROXINE SODIUM 125 MCG TABLET PO (05:58)
[2022-04-18] MEDS: SUCRALFATE SUSP 100 MG/ML 10 ML UDC 1000 MG PO ×3 (05:58→21:11)
[2022-04-18 06:06] LABS: Anion Gap 4 mmol/L (8-16); Blood Urea Nitrogen 5 mg/dL (7-17); Calcium 7.6 mg/dL (8.4-10.2); Carbon Dioxide 25 mmol/L (22-30); Chloride 102 mmol/L (98-107); Estimated CRCL calculation 89 ml/min; Estimated Glomerular Filt Rate > 60; Glucose 108 mg/dL (65-110); Sodium 131 mmol/L (137-145)
[2022-04-18 08:34] LABS: Glucose Point of Care 112 mg/dl (65-105)
[2022-04-18] MEDS: FLUTICASONE PROPIONATE 0.05% NA SPR 16 GM BTL (*BKC) 2 SPRAY NASAL (09:47)
[2022-04-18] MEDS: AZELASTINE HCL NASAL 0.1% 137 MCG/SPR 30 ML BTL 1 SPRAY NASAL ×2 (09:47→21:11)
[2022-04-18] MEDS: MAGNESIUM OXIDE 200 MG TABLET PO ×2 (09:48→21:11)
[2022-04-18] MEDS: ENOXAPARIN 40 MG/0.4 ML SYRINGE SUB-Q (09:48)
[2022-04-18] MEDS: OMEGA 3 POLYUNSAT FATTY ACIDS 1 GM CAP 2 GM PO (09:48)
[2022-04-18] MEDS: CYANOCOBALAMIN 1,000 MCG TABLET 1000 MCG PO (09:48)
[2022-04-18] MEDS: atenoloL 25 MG TABLET BY MOUTH (09:49)
[2022-04-18] MEDS: estradioL 0.5 MG TABLET PO (09:49)
[2022-04-18] MEDS: CHOLECALCIFEROL 1,000 UNITS TABLET 2000 UNITS PO (09:49)
[2022-04-18] MEDS: FAMOTIDINE 20 MG TABLET PO (09:49)
[2022-04-18] MEDS: PANTOPRAZOLE SODIUM IV 40 MG VIAL IV PUSH ×2 (09:49→21:11)
[2022-04-18] MEDS: POTASSIUM CHLORIDE INJ 40 MEQ in SODIUM CHLORIDE 0.9% IV 500 ML 130 MEQ IVPB (11:57)
[2022-04-18 12:22] LABS: Glucose Point of Care 107 mg/dl (65-105)
[2022-04-18] MEDS: LACTATED RINGERS 1,000 ML 150 ML IV CONT ×2 (12:44→14:06)
--- NOTE | 2022-04-18 13:05 | WPDANESEPPF ---
Anes - Initial Pre Proc Eval Procedure: Operation Date: 04/18/22 15:00 Proposed Procedures p Esophagogastroduodenoscopy - Remi Tuttle MD Date/Time: 04/18/22 13:05 Surgeon: Lily Santana PA-C Pre Op Diagnosis: Dehydration, Gastritis, Hypokalemia Patient Data Age: 66 Gender: F Height: 1.7 m Weight: 61.2 kg Last Vital Signs Temp 97.0 F L 04/18/22 12:38 Pulse 56 L 04/18/22 12:38 Resp 18 04/18/22 12:38 BP 94/40 L 04/18/22 12:38 Pulse Ox 100 04/18/22 12:38 O2 Del Method Room Air 04/18/22 12:38 Allergies Allergy/AdvReac Type Severity Reaction Status Date / Time cephalexin Allergy Unknown ill Verified 04/18/22 12:37 Penicillins Allergy Unknown in college Verified 04/18/22 12:37 Sulfa (Sulfonamide Allergy Unknown Skin Verified 04/18/22 12:37 Antibiotics) Reaction Home Medications Medication Instructions Recorded Confirmed Type cholecalciferol (vitamin D3) 25 2,000 unit PO DAILY 02/14/19 04/16/22 History mcg (1,000 unit) capsule cyanocobalamin (vitamin B-12) 1,000 mcg PO DAILY 02/14/19 04/16/22 History 1,000 mcg capsule icosapent ethyl 1 gram capsule 2 g PO BID #120 caps 05/14/21 04/16/22 Rx (Vascepa) atenolol 25 mg tablet See Rx Instructions .Route 09/13/21 04/16/22 Rx .COMPLEX #90 tabs atorvastatin 40 mg tablet See Rx Instructions .Route 09/13/21 04/16/22 Rx .COMPLEX #90 tabs diclofenac sodium 75 mg See Rx Instructions .Route 09/13/21 04/16/22 Rx tablet,delayed release .COMPLEX #180 tabs empagliflozin 10 mg tablet See Rx Instructions .Route 09/13/21 04/16/22 Rx (Jardiance) .COMPLEX #90 tabs azelastine 137 mcg (0.1 %) nasal 137 mcg intranasal Q12H 11/11/21 04/16/22 History spray aerosol estradiol 1 mg tablet 0.5 mg PO DAILY #90 tabs 11/11/21 04/16/22 Rx ketoconazole 2 % topical cream 1 applic topical DAILY PRN Wound 11/11/21 04/16/22 History Healing krill oil-hyaluronic 1 cap PO DAILY 11/11/21 04/16/22 History acid-astaxanthin 353 mg capsule (Move Free Ultra [place] Joint Plus) vit 1 cap PO DAILY 11/11/21 04/16/22 History C,E,zinc,Rg-rctjt-4-lutein-zeaxanthin 250 mg-2.5 mg-0.5 mg capsule fluticasone propionate 50 See Rx Instructions .Route 01/03/22 04/16/22 Rx mcg/actuation nasal .COMPLEX #16 grams spray,suspension estradiol 0.01% (0.1 mg/gram) See Rx Instructions .Route 01/31/22 04/16/22 Rx vaginal cream .COMPLEX #43 grams hydrochlorothiazide 12.5 mg tablet 12.5 mg PO DAILY #90 tabs 02/24/22 04/16/22 Rx levothyroxine 125 mcg tablet 125 mcg PO DAILY #90 tabs 02/24/22 04/16/22 Rx metformin 750 mg tablet,extended 750 mg PO BID #180 tabs 03/13/22 04/16/22 Rx release 24 hr omeprazole 40 mg capsule,delayed 40 mg PO DAILY 03/13/22 04/16/22 History release potassium chloride 20 mEq 20 meq PO DAILY #30 tabs 03/13/22 04/16/22 Rx tablet,extended release(part/cryst) (Klor-Con M) famotidine 20 mg tablet (Pepcid AC) 20 mg PO DAILY #14 tabs 04/10/22 04/16/22 Rx ondansetron 4 mg disintegrating 4 mg PO Q6H PRN nausea and 04/10/22 04/16/22 Rx tablet vomiting #10 tabs guaifenesin 600 mg tablet, 600 mg PO HS 04/16/22 04/16/22 History extended release 12 hr (Mucinex) magnesium 250 mg tablet 250 mg PO BID 04/16/22 04/16/22 History sumatriptan succinate 25 mg tablet See Rx Instructions .Route 04/16/22 04/16/22 History .COMPLEX PRN Migraine Headache vitamins A,C,L-qbpf-kfflfx 2,148 1 tablet PO BID 04/16/22 04/16/22 History mcg-113 mg-45 mg-17.4 mg tablet (PreserVision AREDS) Laboratory Tests 04/17/22 04/17/22 04/18/22 16:45 20:49 05:21 WBC 7.5 K/mm3 K/mm3 (4.5-10.0) RBC 4.42 M/mm3 M/mm3 (4.2-5.4) Hgb 12.7 g/dL g/dL (12.0-15.0) Hct 38.0 % % (37.0-47.0) MCV 86.0 fl fl (80-100) MCH 28.7 pg pg (26-34) MCHC 33.4 g/dl g/dl (32-36) RDW 13.2 % % (11.5-14.5) Plt Count 315 k/mm3 k/mm3 (150-375)
--- NOTE | 2022-04-18 14:11 | SUR.PHASEII ---
1357 Pt blood pressure back down to 79/59 after 2 previous doses of phenylephrine in recovery. Dr Tabares notified. New order received for a 2nd bag of LR.
[2022-04-18 14:21] LABS: Glucose Point of Care 94 mg/dl (65-105)
--- NOTE | 2022-04-18 16:46 | PM.IMPN ---
Progress Note: A&P Assessment and Plan (1) Intractable nausea and vomiting: Code(s): R11.2 - Nausea with vomiting, unspecified Status: Acute Assessment and Plan: Patient presented with nausea and vomiting x1 week. no episodes of emesis today and nausea has resolved advance to full liquid diet continue gentle IV fluids until better tolerating diet antiemetics as needed appreciate GI recommendations CT demonstrates hepatomegaly and esophagitis/ gastritis with no acute abdominopelvic process (2) Epigastric pain: Code(s): R10.13 - Epigastric pain Status: Acute Assessment and Plan: resolved CT of the abdomen/pelvis reveals esophagitis/gastritis which could be contributing to symptoms. underwent EGD today which revealed findings of Mosher's esophagus without dysplasia. biopsies pending lipase is within normal limits appreciate GI recommendations (3) Dehydration: Code(s): E86.0 - Dehydration Status: Acute Assessment and Plan: secondary to persistent nausea /vomiting Resolved. Patient has been adequately rehydrated continue with gentle IV fluid rehydration until able to tolerate diet (4) Hypokalemia: Code(s): E87.6 - Hypokalemia Status: Acute Assessment and Plan: potassium 3.0 today administer 40 mEq KCl continue to monitor BMP (5) UTI (urinary tract infection): Code(s): N39.0 - Urinary tract infection, site not specified Status: Resolved Assessment and Plan: patient with UTI approximately 3 weeks ago and recently completed course of antibiotics. UA abnormal on presentation however urine culture is negative Levaquin discontinued on 04/17/2022 (6) Type 2 diabetes mellitus with unspecified complications: Code(s): E11.8 - Type 2 diabetes mellitus with unspecified complications Status: Acute Assessment and Plan: blood sugars have been reasonably controlled. A1c is 6.1 continue Accu-Cheks, sliding scale insulin, and hypoglycemic protocol home metformin and Jardiance on hold monitor glucose trends (7) Meniere disease: Code(s): H81.09 - Meniere's disease, unspecified ear Status: Chronic Assessment and Plan: no acute issues Subjective Date/time seen: 04/18/22 16:46 Interval history: Date of service: 04/18/2022 Hue Dong is a 66-year-old female with a history of cholecystectomy, type 2 diabetes mellitus, hypertension, vitamin B12 deficiency, hyperlipidemia who is seen in follow-up for nausea and vomiting. she underwent EGD today which revealed Mosher's esophagus. She is feeling better at this time. She has no episodes of nausea or vomiting today. She was NPO for most of the day while awaiting her EGD. She has been able to tolerate water since then but has not had anything more than that. She notes that yesterday she was not able to tolerate any clear liquids and did have ongoing emesis. Her epigastric pain has resolved today. She denies fever or chills. Her family is present in the room today. Discussed patient's diagnosis and treatment plan at length. Review of Systems Review of Systems: All systems reviewed & are unremarkable except as noted in HPI and below Exam Narrative: General: thin, well-appearing 66-year-old female, sitting up in bed, comfortable, NARD Neuro: awake, alert and oriented x4, speech clear, no focal neuro deficits noted HEENMT: normocephalic, atraumatic, EOMI, sclerae anicteric Respiratory: clear to auscultation bilaterally, nonlabored breathing Cardio: regular rate, regular rhythm with S1-S2 Abdomen: nondistended, normoactive bowel sounds, soft, Nontender to palpation Extremities: no edema, erythema, or tenderness to palpation, DP pulses 2+ bilaterally Skin: no rashes or lesions, warm and dry Psych: appropriate mood and affect, judgment and insight intact Objective Data Vital
[2022-04-18 17:19] LABS: Glucose Point of Care 88 mg/dl (65-105)
[2022-04-18 19:48] LABS: Glucose Point of Care 157 mg/dl (65-105)
[2022-04-18] MEDS: guaiFENesin 12 HR 600 MG TABCR PO (21:11)
[2022-04-19] VITALS (9 sets, daily range): BP systolic 92–101; BP diastolic 51–59; PULSE 50–65; RESP 18; TEMP 36.4–36.5; O2SAT 97–100
[2022-04-19] MEDS: SODIUM CHLORIDE 0.9% IV 1,000 ML 60 ML IV CONT (06:12)
[2022-04-19] MEDS: LEVOTHYROXINE SODIUM 125 MCG TABLET PO (06:12)
[2022-04-19] MEDS: SUCRALFATE SUSP 100 MG/ML 10 ML UDC 1000 MG PO ×4 (06:12→21:12)
[2022-04-19 07:03] LABS: Hematocrit 35.8 % (37.0-47.0); Hemoglobin 11.8 g/dL (12.0-15.0); Mean Corpuscular Hemoglobin 29.6 pg (26-34); Mean Corpuscular Volume 89.7 fl (80-100); Mean Platelet Volume 9.6 fl (7.4-10.4); Platelet Count Result 247 k/mm3 (150-375); Red Blood Count 3.99 M/mm3 (4.2-5.4); Red Cell Distribution Width 13.7 % (11.5-14.5); White Blood Count 5.3 K/mm3 (4.5-10.0)
[2022-04-19 07:11] LABS: Anion Gap -1 mmol/L (8-16); Blood Urea Nitrogen 6 mg/dL (7-17); Calcium 7.5 mg/dL (8.4-10.2); Carbon Dioxide 25 mmol/L (22-30); Chloride 107 mmol/L (98-107); Estimated CRCL calculation 89 ml/min; Estimated Glomerular Filt Rate > 60; Glucose 109 mg/dL (65-110); Magnesium 1.8 mg/dL (1.6-2.3); Potassium 3.2 mmol/L (3.4-5.0); Sodium 131 mmol/L (137-145)
[2022-04-19] MEDS: POTASSIUM CHLORIDE 20 MEQ TABLET PO (08:30)
[2022-04-19 08:32] LABS: Glucose Point of Care 114 mg/dl (65-105)
[2022-04-19] MEDS: ENOXAPARIN 40 MG/0.4 ML SYRINGE SUB-Q (08:32)
[2022-04-19] MEDS: atenoloL 25 MG TABLET BY MOUTH (08:33)
[2022-04-19] MEDS: estradioL 0.5 MG TABLET PO (08:33)
[2022-04-19] MEDS: PANTOPRAZOLE SODIUM IV 40 MG VIAL IV PUSH (08:34)
[2022-04-19] MEDS: CHOLECALCIFEROL 1,000 UNITS TABLET 2000 UNITS PO (08:35)
[2022-04-19] MEDS: MAGNESIUM OXIDE 200 MG TABLET PO ×2 (08:35→21:13)
[2022-04-19] MEDS: CYANOCOBALAMIN 1,000 MCG TABLET 1000 MCG PO (08:35)
[2022-04-19] MEDS: AZELASTINE HCL NASAL 0.1% 137 MCG/SPR 30 ML BTL 1 SPRAY NASAL ×2 (08:36→21:13)
[2022-04-19] MEDS: OMEGA 3 POLYUNSAT FATTY ACIDS 1 GM CAP 2 GM PO ×2 (08:36→17:45)
[2022-04-19] MEDS: FLUTICASONE PROPIONATE 0.05% NA SPR 16 GM BTL (*BKC) 2 SPRAY NASAL (08:38)
[2022-04-19 12:14] LABS: Glucose Point of Care 123 mg/dl (65-105)
--- NOTE | 2022-04-19 13:12 | P.PNIM_ITS ---
Progress Note: A&P Assessment and Plan (1) Intractable nausea and vomiting: Code(s): R11.2 - Nausea with vomiting, unspecified Status: Acute Assessment and Plan: Patient presented with nausea and vomiting x1 week. * resolved * tolerating full liquid diet, advance to low-fat before dinner * will discontinue IV fluids as patient is tolerating p.o. intake * antiemetics as needed * appreciate GI recommendations * CT demonstrates hepatomegaly and esophagitis/ gastritis with no acute abdominopelvic process (2) Epigastric pain: Code(s): R10.13 - Epigastric pain Status: Acute Assessment and Plan: resolved * CT of the abdomen/pelvis reveals esophagitis/gastritis which could be contributing to symptoms. * underwent EGD on 04/18/22 which revealed findings of Mosher's esophagus without dysplasia. biopsies pending * if biopsy proven, she will need repeat EGD in 1 year per GI recommendations * lipase is within normal limits * appreciate GI recommendations (3) Dehydration: Code(s): E86.0 - Dehydration Status: Acute Assessment and Plan: secondary to persistent nausea /vomiting * resolved following IV fluid rehydration. Patient has been adequately rehydrated (4) Hypokalemia: Code(s): E87.6 - Hypokalemia Status: Acute Assessment and Plan: potassium 3.2 today * administer 20 mEq KCl * continue to monitor BMP (5) Hypotension: Code(s): I95.9 - Hypotension, unspecified Status: Acute Assessment and Plan: Blood pressures have been slightly soft in the 90s systolic * Check orthostatics (6) UTI (urinary tract infection): Code(s): N39.0 - Urinary tract infection, site not specified Status: Resolved Assessment and Plan: patient with UTI approximately 3 weeks ago and recently completed course of antibiotics. * UA abnormal on presentation however urine culture is negative * Levaquin discontinued on 04/17/2022 (7) Type 2 diabetes mellitus with unspecified complications: Code(s): E11.8 - Type 2 diabetes mellitus with unspecified complications Status: Acute Assessment and Plan: blood sugars have been reasonably controlled. A1c is 6.1 * continue Accu-Cheks, sliding scale insulin, and hypoglycemic protocol * home metformin and Jardiance on hold * monitor glucose trends (8) Meniere disease: Code(s): H81.09 - Meniere's disease, unspecified ear Status: Chronic Assessment and Plan: no acute issues Subjective Date/time seen: 04/19/22 13:12 Interval history: Date of service: 04/19/2022 Hue Dong is a 66-year-old female with a history of cholecystectomy, type 2 diabetes mellitus, hypertension, vitamin B12 deficiency, hyperlipidemia who is seen in follow-up for nausea and vomiting. She is starting to feel better today. She was able to tolerate yogurt and Jell-O for breakfast today. She is not having any nausea or vomiting. She had a bowel movement yesterday. She has no abdominal pain. She does endorse some lightheadedness upon standing. She denies dizziness. Denies shortness of breath, cough, or chest pain. No additional concerns. Review of Systems Review of Systems: All systems reviewed & are unremarkable except as noted in HPI and below Exam Narrative: General: thin, well-appearing 66-year-old female, sitting up in bed, comfortable, NARD
--- NOTE | 2022-04-19 13:12 | PM.IMPN ---
Progress Note: A&P Assessment and Plan (1) Intractable nausea and vomiting: Code(s): R11.2 - Nausea with vomiting, unspecified Status: Acute Assessment and Plan: Patient presented with nausea and vomiting x1 week. resolved tolerating full liquid diet, advance to low-fat before dinner will discontinue IV fluids as patient is tolerating p.o. intake antiemetics as needed appreciate GI recommendations CT demonstrates hepatomegaly and esophagitis/ gastritis with no acute abdominopelvic process (2) Epigastric pain: Code(s): R10.13 - Epigastric pain Status: Acute Assessment and Plan: resolved CT of the abdomen/pelvis reveals esophagitis/gastritis which could be contributing to symptoms. underwent EGD on 04/18/22 which revealed findings of Mosher's esophagus without dysplasia. biopsies pending if biopsy proven, she will need repeat EGD in 1 year per GI recommendations lipase is within normal limits appreciate GI recommendations (3) Dehydration: Code(s): E86.0 - Dehydration Status: Acute Assessment and Plan: secondary to persistent nausea /vomiting resolved following IV fluid rehydration. Patient has been adequately rehydrated (4) Hypokalemia: Code(s): E87.6 - Hypokalemia Status: Acute Assessment and Plan: potassium 3.2 today administer 20 mEq KCl continue to monitor BMP (5) Hypotension: Code(s): I95.9 - Hypotension, unspecified Status: Acute Assessment and Plan: Blood pressures have been slightly soft in the 90s systolic Check orthostatics (6) UTI (urinary tract infection): Code(s): N39.0 - Urinary tract infection, site not specified Status: Resolved Assessment and Plan: patient with UTI approximately 3 weeks ago and recently completed course of antibiotics. UA abnormal on presentation however urine culture is negative Levaquin discontinued on 04/17/2022 (7) Type 2 diabetes mellitus with unspecified complications: Code(s): E11.8 - Type 2 diabetes mellitus with unspecified complications Status: Acute Assessment and Plan: blood sugars have been reasonably controlled. A1c is 6.1 continue Accu-Cheks, sliding scale insulin, and hypoglycemic protocol home metformin and Jardiance on hold monitor glucose trends (8) Meniere disease: Code(s): H81.09 - Meniere's disease, unspecified ear Status: Chronic Assessment and Plan: no acute issues Subjective Date/time seen: 04/19/22 13:12 Interval history: Date of service: 04/19/2022 Hue Dong is a 66-year-old female with a history of cholecystectomy, type 2 diabetes mellitus, hypertension, vitamin B12 deficiency, hyperlipidemia who is seen in follow-up for nausea and vomiting. She is starting to feel better today. She was able to tolerate yogurt and Jell-O for breakfast today. She is not having any nausea or vomiting. She had a bowel movement yesterday. She has no abdominal pain. She does endorse some lightheadedness upon standing. She denies dizziness. Denies shortness of breath, cough, or chest pain. No additional concerns. Review of Systems Review of Systems: All systems reviewed & are unremarkable except as noted in HPI and below Exam Narrative: General: thin, well-appearing 66-year-old female, sitting up in bed, comfortable, NARD Neuro: awake, alert and oriented x4, speech clear, no focal neuro deficits noted HEENMT: normocephalic, atraumatic, EOMI, sclerae anicteric Respiratory: clear to auscultation bilaterally, nonlabored breathing Cardio: regular rate, regular rhythm with S1-S2 Abdomen: nondistended, normoactive bowel sounds, soft, nontender to palpation Extremities: no edema, erythema, or tenderness to palpation, DP pulses 2+ bilaterally Skin: no rashes or lesions, warm and dry Psych: appropriate mood and affect, judgment and i
[2022-04-19 17:57] LABS: Glucose Point of Care 87 mg/dl (65-105)
[2022-04-19 21:07] LABS: Glucose Point of Care 210 mg/dl (65-105)
[2022-04-19] MEDS: PANTOPRAZOLE 40 MG TABLET PO (21:12)
[2022-04-19] MEDS: guaiFENesin 12 HR 600 MG TABCR PO (21:12)
[2022-04-20] VITALS (9 sets, daily range): BP systolic 78–106; BP diastolic 44–60; PULSE 56–70; RESP 12–18; TEMP 36.3–36.6; O2SAT 98–100
[2022-04-20] MEDS: SUCRALFATE SUSP 100 MG/ML 10 ML UDC 1000 MG PO ×2 (05:51→12:46)
[2022-04-20] MEDS: LEVOTHYROXINE SODIUM 125 MCG TABLET PO (05:51)
[2022-04-20 06:41] LABS: Hemoglobin 11.4 g/dL (12.0-15.0); Mean Corpuscular HGB Conc 33.5 g/dl (32-36); Mean Corpuscular Hemoglobin 29.5 pg (26-34); Mean Corpuscular Volume 87.9 fl (80-100); Mean Platelet Volume 9.5 fl (7.4-10.4); Platelet Count Result 265 k/mm3 (150-375); Red Blood Count 3.87 M/mm3 (4.2-5.4)
[2022-04-20 06:54] LABS: Anion Gap 2 mmol/L (8-16); Blood Urea Nitrogen 6 mg/dL (7-17); Calcium 7.6 mg/dL (8.4-10.2); Carbon Dioxide 25 mmol/L (22-30); Chloride 109 mmol/L (98-107); Estimated CRCL calculation 76 ml/min; Estimated Glomerular Filt Rate > 60; Glucose 114 mg/dL (65-110); Potassium 3.2 mmol/L (3.4-5.0); Sodium 136 mmol/L (137-145)
[2022-04-20 08:34] LABS: Glucose Point of Care 125 mg/dl (65-105)
[2022-04-20] MEDS: AZELASTINE HCL NASAL 0.1% 137 MCG/SPR 30 ML BTL 1 SPRAY NASAL ×2 (09:20→20:44)
[2022-04-20] MEDS: FLUTICASONE PROPIONATE 0.05% NA SPR 16 GM BTL (*BKC) 2 SPRAY NASAL (09:20)
[2022-04-20] MEDS: ENOXAPARIN 40 MG/0.4 ML SYRINGE SUB-Q (09:22)
[2022-04-20] MEDS: OMEGA 3 POLYUNSAT FATTY ACIDS 1 GM CAP 2 GM PO ×2 (09:23→17:17)
[2022-04-20] MEDS: MAGNESIUM OXIDE 200 MG TABLET PO ×2 (09:23→20:41)
[2022-04-20] MEDS: atenoloL 12.5 MG TABLET BY MOUTH (09:24)
[2022-04-20] MEDS: CHOLECALCIFEROL 1,000 UNITS TABLET 2000 UNITS PO (09:24)
[2022-04-20] MEDS: CYANOCOBALAMIN 1,000 MCG TABLET 1000 MCG PO (09:24)
[2022-04-20] MEDS: PANTOPRAZOLE 40 MG TABLET PO ×2 (09:25→20:42)
[2022-04-20] MEDS: estradioL 0.5 MG TABLET PO (09:25)
[2022-04-20 13:04] LABS: Glucose Point of Care 166 mg/dl (65-105)
--- NOTE | 2022-04-20 14:38 | P.PNIM_ITS ---
Progress Note: A&P Assessment and Plan (1) Intractable nausea and vomiting: Code(s): R11.2 - Nausea with vomiting, unspecified Status: Acute Assessment and Plan: Patient presented with nausea and vomiting x1 week. CT showed hepatomegaly and esophagitis/ gastritis with no acute abdominopelvic process * resolved * tolerating low-fiber diet * antiemetics as needed * appreciate GI recommendations (2) Epigastric pain: Code(s): R10.13 - Epigastric pain Status: Acute Assessment and Plan: resolved * CT of the abdomen/pelvis reveals esophagitis/gastritis which could be contributing to symptoms. * underwent EGD on 04/18/22 which revealed findings of Mosher's esophagus without dysplasia. biopsies pending * if biopsy proven, she will need repeat EGD in 1 year per GI recommendations * lipase is within normal limits * appreciate GI recommendations (3) Orthostatic hypotension: Code(s): I95.1 - Orthostatic hypotension Status: Acute Assessment and Plan: noted to be orthostatic today with 20 point drop in systolic BP from supine to standing. Blood pressure declined to 78/60 * initiate DIANNA hose * will administer 500 cc IV fluid bolus * continue to encourage hydration * home atenolol was decreased by half today but will be discontinued at this time given hypotension. heart rate is stable on the lower end and patient will likely tolerate holding this medication * implement fall precautions * continue to monitor orthostatics (4) Hypokalemia: Code(s): E87.6 - Hypokalemia Status: Acute Assessment and Plan: potassium 3.2 today * administer 20 mEq KCl * continue to monitor BMP (5) UTI (urinary tract infection): Code(s): N39.0 - Urinary tract infection, site not specified Status: Resolved Assessment and Plan: patient with UTI approximately 3 weeks ago and recently completed course of antibiotics. * UA abnormal on presentation however urine culture is negative * Levaquin discontinued on 04/17/2022 (6) Type 2 diabetes mellitus with unspecified complications: Code(s): E11.8 - Type 2 diabetes mellitus with unspecified complications Status: Acute Assessment and Plan: blood sugars have been reasonably controlled. A1c is 6.1 * continue Accu-Cheks, sliding scale insulin, and hypoglycemic protocol * home metformin and Jardiance on hold * monitor glucose trends Time Spent With Patient Time: 50 minutes spent on this encounter Time with patient: Greater than 35 minutes Subjective Date/time seen: 04/20/22 14:38 Interval history: Date of service: 04/19/2022 Hue Dong is a 66-year-old female with a history of cholecystectomy, type 2 diabetes mellitus, hypertension, vitamin B12 deficiency, hyperlipidemia who is seen in follow-up for nausea and vomiting. she feels improved today. She no longer has nausea or vomiting. She is tolerating a bland diet. She has no abdominal pain. Reports diarrhea yesterday and notes stools today. She is able to ambulate with assistance. She denies any dizziness or lightheadedness with activity but does occasionally feel woozy with standing. She is concerned about her blood pressure running low. She denies chest pain or palpitations. She does endorse headache and a little discomfort in her neck but states her symptoms are not consistent with the migraines that she experiences. Review of Systems Review of Systems: All systems reviewed
--- NOTE | 2022-04-20 14:38 | PM.IMPN ---
Progress Note: A&P Assessment and Plan (1) Intractable nausea and vomiting: Code(s): R11.2 - Nausea with vomiting, unspecified Status: Acute Assessment and Plan: Patient presented with nausea and vomiting x1 week. CT showed hepatomegaly and esophagitis/ gastritis with no acute abdominopelvic process resolved tolerating low-fiber diet antiemetics as needed appreciate GI recommendations (2) Epigastric pain: Code(s): R10.13 - Epigastric pain Status: Acute Assessment and Plan: resolved CT of the abdomen/pelvis reveals esophagitis/gastritis which could be contributing to symptoms. underwent EGD on 04/18/22 which revealed findings of Mosher's esophagus without dysplasia. biopsies pending if biopsy proven, she will need repeat EGD in 1 year per GI recommendations lipase is within normal limits appreciate GI recommendations (3) Orthostatic hypotension: Code(s): I95.1 - Orthostatic hypotension Status: Acute Assessment and Plan: noted to be orthostatic today with 20 point drop in systolic BP from supine to standing. Blood pressure declined to 78/60 initiate DIANNA hose will administer 500 cc IV fluid bolus continue to encourage hydration home atenolol was decreased by half today but will be discontinued at this time given hypotension. heart rate is stable on the lower end and patient will likely tolerate holding this medication implement fall precautions continue to monitor orthostatics (4) Hypokalemia: Code(s): E87.6 - Hypokalemia Status: Acute Assessment and Plan: potassium 3.2 today administer 20 mEq KCl continue to monitor BMP (5) UTI (urinary tract infection): Code(s): N39.0 - Urinary tract infection, site not specified Status: Resolved Assessment and Plan: patient with UTI approximately 3 weeks ago and recently completed course of antibiotics. UA abnormal on presentation however urine culture is negative Levaquin discontinued on 04/17/2022 (6) Type 2 diabetes mellitus with unspecified complications: Code(s): E11.8 - Type 2 diabetes mellitus with unspecified complications Status: Acute Assessment and Plan: blood sugars have been reasonably controlled. A1c is 6.1 continue Accu-Cheks, sliding scale insulin, and hypoglycemic protocol home metformin and Jardiance on hold monitor glucose trends Time Spent With Patient Time: 50 minutes spent on this encounter Time with patient: Greater than 35 minutes Subjective Date/time seen: 02/05/23 14:38 Interval history: Date of service: 04/19/2022 Hue Dong is a 66-year-old female with a history of cholecystectomy, type 2 diabetes mellitus, hypertension, vitamin B12 deficiency, hyperlipidemia who is seen in follow-up for nausea and vomiting. she feels improved today. She no longer has nausea or vomiting. She is tolerating a bland diet. She has no abdominal pain. Reports diarrhea yesterday and notes stools today. She is able to ambulate with assistance. She denies any dizziness or lightheadedness with activity but does occasionally feel woozy with standing. She is concerned about her blood pressure running low. She denies chest pain or palpitations. She does endorse headache and a little discomfort in her neck but states her symptoms are not consistent with the migraines that she experiences. Review of Systems Review of Systems: All systems reviewed & are unremarkable except as noted in HPI and below Exam Narrative: General: thin, well-appearing 66-year-old female, sitting up in bed, comfortable, NARD Neuro: awake, alert and oriented x4, speech clear, no focal neuro deficits noted HEENMT: normocephalic, atraumatic, EOMI, sclerae anicteric Respiratory: clear to auscultation bilaterally, nonlabored breathing Cardio: regular rate, regular rhythm with S1-S2 Abdomen: nondistended, norm
[2022-04-20] MEDS: SODIUM CHLORIDE 0.9% IV 500 ML IV CONT (17:14)
[2022-04-20] MEDS: POTASSIUM CHLORIDE 20 MEQ TABLET.ER PO (17:19)
[2022-04-20 17:36] LABS: Glucose Point of Care 156 mg/dl (65-105)
[2022-04-20] MEDS: guaiFENesin 12 HR 600 MG TABCR PO (20:41)
[2022-04-20 21:11] LABS: Glucose Point of Care 157 mg/dl (65-105)
[2022-04-21] MEDS: ACETAMINOPHEN 325 MG TABLET 650 MG PO (03:29)
[2022-04-21 05:00] VITALS: BP 105/52
[2022-04-21] MEDS: LEVOTHYROXINE SODIUM 125 MCG TABLET PO (05:39)
[2022-04-21 05:45] LABS: Hematocrit 34.5 % (37.0-47.0); Hemoglobin 11.4 g/dL (12.0-15.0); Mean Corpuscular Hemoglobin 29.4 pg (26-34); Mean Corpuscular Volume 88.9 fl (80-100); Mean Platelet Volume 9.5 fl (7.4-10.4); Platelet Count Result 265 k/mm3 (150-375); Red Blood Count 3.88 M/mm3 (4.2-5.4); White Blood Count 5.2 K/mm3 (4.5-10.0)
[2022-04-21 05:48] VITALS: BP 119/52; PULSE 66; RESP 18; TEMP 36.4; O2SAT 97
[2022-04-21 05:58] LABS: Anion Gap 3 mmol/L (8-16); Blood Urea Nitrogen 6 mg/dL (7-17); Calcium 7.7 mg/dL (8.4-10.2); Carbon Dioxide 24 mmol/L (22-30); Chloride 109 mmol/L (98-107); Estimated CRCL calculation 108 ml/min; Estimated Glomerular Filt Rate > 60; Glucose 116 mg/dL (65-110); Potassium 3.5 mmol/L (3.4-5.0); Sodium 136 mmol/L (137-145)
[2022-04-21 08:00] VITALS: BP 105/45
[2022-04-21 08:22] LABS: Glucose Point of Care 112 mg/dl (65-105)
[2022-04-21] MEDS: FLUTICASONE PROPIONATE 0.05% NA SPR 16 GM BTL (*BKC) 2 SPRAY NASAL (10:22)
[2022-04-21] MEDS: MAGNESIUM OXIDE 200 MG TABLET PO (10:23)
[2022-04-21] MEDS: CYANOCOBALAMIN 1,000 MCG TABLET 1000 MCG PO (10:23)
[2022-04-21] MEDS: AZELASTINE HCL NASAL 0.1% 137 MCG/SPR 30 ML BTL 1 SPRAY NASAL (10:23)
[2022-04-21] MEDS: PANTOPRAZOLE 40 MG TABLET PO (10:24)
[2022-04-21] MEDS: OMEGA 3 POLYUNSAT FATTY ACIDS 1 GM CAP 2 GM PO (10:24)
[2022-04-21] MEDS: estradioL 0.5 MG TABLET PO (10:24)
[2022-04-21] MEDS: CHOLECALCIFEROL 1,000 UNITS TABLET 2000 UNITS PO (10:24)
[2022-04-21] MEDS: ENOXAPARIN 40 MG/0.4 ML SYRINGE SUB-Q (10:24)
[2022-04-21] MEDS: POTASSIUM CHLORIDE 20 MEQ TABLET.ER PO (10:25)
[2022-04-21 11:11] VITALS: BP 101/54; BP 97/42
[2022-04-21 12:46] LABS: Glucose Point of Care 161 mg/dl (65-105)
[2022-04-21 14:00] VITALS: BP 118/64; PULSE 58; RESP 18; TEMP 36.4; O2SAT 99
--- NOTE | 2022-04-21 14:43 | WPDGIPROGNO ---
Progress Note: A&P Assessment and Plan (1) Nausea and vomiting in adult: Code(s): R11.2 - Nausea with vomiting, unspecified Status: Acute Assessment and Plan: resolved, eating without any problem (2) Epigastric pain: Code(s): R10.13 - Epigastric pain Status: Acute Assessment and Plan: mild gastritis, no H pylori, no Mosher's (bx reviewed) ppi will follow [place], call if questions (3) Acute dehydration: Code(s): E86.0 - Dehydration Status: Acute Assessment and Plan: resolved (4) Orthostatic hypotension: Code(s): I95.1 - Orthostatic hypotension Status: Acute Subjective Date/time seen: 04/21/22 14:43 Interval history: she has been eating ok without any more nausea, also her BP is better and she is hoping to go home soon Review of Systems Review of Systems: All systems reviewed & are unremarkable except as noted in HPI and below Exam Const: General: comfortable and no acute distress HENMT: Face/Nose/Sinus: Normal nares present Eyes: General: appearance normal, both eyes and all related structures Neck: Neck: no JVD Resp: Auscultation: clear to auscultation bilaterally Cardio: Rate: regular rate Rhythm: regular rhythm GI: Inspection: non-distended GI Palp: Yes Soft to palpation, No Tenderness to palpation present (GI) and No Guarding due to palpation present (GI) Skin: General skin exam: normal color Neuro: General: gait normal Speech: normal speech Extrem: General: normal to inspection Psych: Mental Status: mental status grossly normal Objective Data Vital Signs Vital Signs: Vital Signs - 24 hr 04/20/22 14:50 04/20/22 20:39 04/20/22 20:00 Temperature 97.3 F L 97.9 F Pulse Rate 58 L 65 Respiratory Rate 12 18 Blood Pressure 90/56 L 101/49 L Pulse Oximetry 100 100 Oxygen Delivery Room Air 04/20/22 20:00 04/21/22 05:00 04/21/22 05:48 Temperature 97.6 F Pulse Rate 66 Respiratory Rate 18 Blood Pressure 87/52 L 105/52 L 119/52 L Pulse Oximetry 97 Oxygen Delivery 04/21/22 08:00 04/21/22 11:11 04/21/22 11:11 Temperature Pulse Rate Respiratory Rate Blood Pressure 105/45 L 97/42 L 101/54 L Pulse Oximetry Oxygen Delivery 04/21/22 10:00 Temperature Pulse Rate Respiratory Rate Blood Pressure Pulse Oximetry Oxygen Delivery Room Air Intake/Output Intake/Output: Intake & Output 04/18/22 04/19/22 04/20/22 04/21/22 23:59 23:59 23:59 23:59 Intake Total 2770 2720 880 240 Output Total 900 750 350 Balance 1870 1970 530 240 Meds/Results Medications: Active Medications Generic Name Dose Route Start Last Admin Trade Name Freq PRN Reason Stop Dose Admin Acetaminophen 650 mg 04/20/22 14:37 04/21/22 03:29 Acetaminophen 325 Mg Tablet PO 650 mg Q4H PRN Administration Headache Atenolol 12.5 mg 04/20/22 09:00 04/20/22 09:24 Atenolol 12.5 Mg Tablet BY MOUTH 12.5 mg DAILY FABRICE Administration Azelastine HCl 1 spray 04/16/22 09:00 04/21/22 10:23 Azelastine Hcl Nasal 0.1% 137 Mcg/Spr 30 Ml Btl NASAL 1 spray Q12HR FABRICE Administration Cyanocobalamin 1,000 mcg 04/16/22 09:00 04/21/22 10:23 Cyanocobalamin 1,000 Mcg Tablet PO 1,000 mcg DAILY FABRICE Administration Enoxaparin Sodium 40 mg 04/16/22 09:00 04/21/22 10:24 Enoxaparin 40 Mg/0.4 Ml Syringe SUB-Q 40 mg DAILY FABRICE Administration Estradiol 0.5 mg 04/16/22 09:00 04/21/22 10:24 Estradiol 0.5 Mg Tablet PO 0.5 mg DAILY FABRICE Administration Fish Oil 2 gm 04/16/22 09:00 04/21/22 10:24 [place] 3 Polyunsat Fatty Acids 1 Gm Cap PO 2 gm BID FABRICE Administration Fluticasone Propionate 2 spray 04/16/22 09:00 04/21/22 10:22 Fluticasone Propionate 0.05% Na Spr 16 Gm Btl (*Bkc) NASAL 2 spray DAILY FABRICE Administration Guaifenesin 600 mg 04/16/22 22:00 04/20/22 20:41 Guaifenesin 12 Hr 600 Mg Tabcr PO 600 mg HS FABRICE Administratio
--- NOTE | 2022-04-21 15:45 | PM.DS ---
DS: Admitting Diagnosis Discharge Date 04/21/2022 Admitting Diagnosis nausea and vomiting DS: Discharge Diagnosis Discharge Diagnosis (1) Intractable nausea and vomiting: Code(s): R11.2 - Nausea with vomiting, unspecified Status: Acute Assessment and Plan: Patient presented with nausea and vomiting x1 week. CT showed hepatomegaly and esophagitis/ gastritis with no acute abdominopelvic process. Nausea and vomiting resolved patient was able to advance to a low-fiber diet which she tolerated well. (2) Epigastric pain: Code(s): R10.13 - Epigastric pain Status: Acute Assessment and Plan: Resolved. CT of the abdomen/pelvis revealed esophagitis/gastritis which could be contributing to symptoms. Underwent EGD on 04/18/22 which revealed findings concerning for Mosher's esophagus without dysplasia and gastritis. Biopsies were negative for Mosher's esophagus and no need for further monitoring or repeat EGD. Begin pantoprazole 40 mg twice a day. Lipase within normal limits. She can follow-up with GI as an outpatient (3) Orthostatic hypotension: Code(s): I95.1 - Orthostatic hypotension Status: Acute Assessment and Plan: Noted to be orthostatic 20 point drop in systolic BP from supine to standing. Patient was rehydrated with IV fluids. Started on Miguel hose which she should continue to wear when out of bed. Home atenolol was held and hydrochlorothiazide was discontinued. Orthostasis resolved on repeat following appropriate hydration. Discussed fall precautions and importance of maintaining adequate hydration with the patient. (4) Hypokalemia: Code(s): E87.6 - Hypokalemia Status: Acute Assessment and Plan: Potassium slightly low, typically ranging from 3.0-3.2 during admission. Likely a chronic issue worsened due to nausea and vomiting. Continue home potassium supplement 20 mEq daily (5) UTI (urinary tract infection): Code(s): N39.0 - Urinary tract infection, site not specified Status: Resolved Assessment and Plan: patient with UTI approximately 3 weeks ago and recently completed course of antibiotics. UA abnormal on presentation however urine culture negative. Levaquin discontinued on 04/17/2022 (6) Type 2 diabetes mellitus with unspecified complications: Code(s): E11.8 - Type 2 diabetes mellitus with unspecified complications Status: Acute Assessment and Plan: blood sugars reasonably controlled. A1c is 6.1. Continue home metformin and Jardiance DS: Summary Hospital Course Hospital Course: date of admission: 04/15/2022 date of discharge: 04/21/2022 Hue Dong is a 66-year-old female with a history of cholecystectomy, type 2 diabetes mellitus, hypertension, vitamin B12 deficiency, hyperlipidemia who? presented to the emergency department on 04/15/2022 with complaints of nausea and vomiting ongoing for 1 week. On presentation to the ED, she was found to be hypotensive with BP 92/60, additional vital signs were stable, WBC 10.2, potassium was 2.7, urinalysis slightly abnormal, CT of the abdomen/ pelvis revealed esophagitis/ gastritis with hepatomegaly and no acute abdominal pelvic process. She was admitted to the hospitalist service for further evaluation and management. Please see above for further details. Her nausea and vomiting resolved and she was able to advance to a bland diet which she tolerated well. She underwent EGD which revealed gastritis and findings concerning for Mosher's esophagus, however biopsies showed to be negative. she will begin pantoprazole 40 mg b.i.d. and can follow-up with GI as an outpatient as needed. She was found to have orthostatic hypotension for which she was rehydrated. Compression stockings were initiated. Blood pressures improved and she was asymptomatic. home atenolol was held. Hydrochlorothiazide discontinued. She was able to ambulate independently. She
== END 2022-04-21 17:15 | disposition home or self-care (01) | DRG 391 ==
LOC: ANHED 20:03 → ANH3MED 23:09
PROVIDERS: Emergency Medicine; Internal Medicine Gastroenterology; Admitting Provider Internal Medicine; Emergency Provider General Practice; PCP Emergency Medicine; Visit Provider Physician Assistant
PROC: 0DJ08ZZ Inspection of Upper Intestinal Tract, Via Natural or Artificial Opening Endoscopic (ICD-10-PCS; CPT 43235; principal; 2022-04-18 15:00)
DX: K29.70 Gastritis, unspecified, without bleeding (principal); E43 Unspecified severe protein-calorie malnutrition; K20.90 Esophagitis, unspecified without bleeding; R16.0 Hepatomegaly, not elsewhere classified; I95.1 Orthostatic hypotension; K44.9 Diaphragmatic hernia without obstruction or gangrene; E86.0 Dehydration; H81.09 Meniere's disease, unspecified ear; E87.6 Hypokalemia; K21.9 Gastro-esophageal reflux disease without esophagitis; Z20.822 Contact with and (suspected) exposure to COVID-19; E53.8 Deficiency of other specified B group vitamins; E11.9 Type 2 diabetes mellitus without complications; I10 Essential (primary) hypertension; Z90.710 Acquired absence of both cervix and uterus; Z90.49 Acquired absence of other specified parts of digestive tract; Z79.84 Long term (current) use of oral hypoglycemic drugs; Z68.21 Body mass index [BMI] 21.0-21.9, adult
CPT/HCPCS: 36415; 74177; 80048; 80053; 81001; 82948; 83690; 83735; 85025; 85027; 87086; 87637; 88305; 96361; 96365; 96366; 96367; 96372; 96375; 96376; 99285; A9270; C9113; G0378; G0379; J0131; J1650; J1956; J2370; J2405; J2704; J3480; J7030; J7040; J7120; Q9967

== ENCOUNTER 2022-05-26 14:01 | Outpatient (CLI) | payer MEDICARE, BC, SELFPAY ==
--- NOTE | ~2022-05-26 | MM_ITS ---
EXAMINATION: MM screening [facility] BI w surinder HISTORY: Screening mammogram TECHNIQUE: Craniocaudal and mediolateral oblique 3-D tomosynthesis images were obtained and synthetic 2-D images were generated. CAD analysis was submitted and interpreted. COMPARISON: Serial mammogram and ultrasound examinations dating back to 06/11/2018 BREAST PARENCHYMAL COMPOSITION: There are scattered areas of fibroglandular density. FINDINGS: There is suggestion of interval increased density in the upper outer left breast compared t o prior examinations. Diagnostic left mammogram is recommended, with ultrasound if required. Otherwise no suspicious mass or architectural distortion, malignant calcification, skin thickening or retraction or significant new or developing density is noted. Scattered numerous bilateral benign calcifications are again present. IMPRESSION: 1. Interval increased density in upper outer left breast as suggested compared to prior examinations 2. Diagnostic left mammogram is recommended, with ultrasound if required BI-RADS Category 0: Incomplete: Needs additional imaging evaluation. Reviewed, dictated and finalized at location A.
--- NOTE | ~2022-05-26 | DEXA_ITS ---
Bone Density Report Name: ANAI WOOD Age: 66 Sex: Female Ethnicity: White Date of : 1955 Indication: postmenopausal; screening for osteoporosis; height loss; hysterectomy; Referring Provider: ARMANDO VAUGHN Study: Bone densitometry was performed. Exam Date: May 26, 2022 Accession number: [id number] Bone Density: Region BMD T-score Z-score Classification AP Spine(L1-L4) 1.307 2.4 4.2 Normal Femoral Neck (Left) 0.919 0.6 2.2 Normal Total Hip (Left) 1.193 2.1 3.4 Normal Femoral Neck (Right) 0.922 0.7 2.3 Normal Total Hip (Right) 1.134 1.6 2.9 Normal Total Hip Mean 1.163 1.9 3.2 Normal World Health Organization criteria for BMD impression classify patients as: Normal (T-score at or above -1.0), Osteopenia (T-score between -1.0 and -2.5), or Osteoporosis (T-score at or below -2.5). 10-year Fracture Risk: FRAX not reported because: All T-scores for Spine Total, Hip Total, Femoral Neck at or above -1.0 Clinical Information Provided by Patient: Has used the following medications: HRT (i.e. estrogen/hormone therapy) Has the following medical conditions: Hysterectomy Patient maximum height was 68 Menopause Age: 25 Does not regularly consume dairy products Onset of menses at age 12 Number of children 0 Impression: The patient has normal bone mass. Discussion: LOW RISK OF FRACTURE; BONE DENSITY IS WELL ABOVE THE MINIMUM DESIRABLE LEVEL AND ABOVE AVERAGE FOR AGE AND SEX AT ALL SKELETAL SITES TESTED. This person's bone density is above expected limits for age and sex. This is rarely clinically significant, but should be pursued if there are significant musculoskeletal complaints. The patient should follow a healthful lifestyle (good nutrition with adequate calcium and vitamin D, and appropriate weight-bearing exercise). Follow-Up: Consider repeating this study in 5 years or sooner if there is some new clinical indication. Reported by: LENNY on 05/26/2022 2:55:00 PM. Reviewed, dictated and finalized at location AElyssa PIERCE
== END 2022-05-26 14:02 | disposition home or self-care (01) ==
LOC: ANHIMG 14:03
PROVIDERS: PCP Emergency Medicine; Visit Provider Emergency Medicine
DX: Z12.31 Encounter for screening mammogram for malignant neoplasm of breast (principal); E89.41 Symptomatic postprocedural ovarian failure; R92.8 Other abnormal and inconclusive findings on diagnostic imaging of breast
CPT/HCPCS: 77063; 77067; 77080

== ENCOUNTER 2022-06-11 11:18 | Outpatient (CLI) | payer MEDICARE, BC, SELFPAY ==
--- NOTE | ~2022-06-11 | MMUS_ITS ---
EXAMINATION: MM diagnostic [facility] LT w surinder, US breast LT limited HISTORY: Interval increased density in upper outer quadrant of left breast was suggested on 05/26/2022 screening mammogram examination TECHNIQUE: Additional 3-D tomosynthesis images of left breast were performed and synthetic 2-D images were generated. CAD analysis was submitted and interpreted. High resolution upper outer quadrant lef t breast ultrasound was performed. COMPARISON: 05/26/2022 bilateral screening mammogram FINDINGS: MAMMOGRAPHIC FINDINGS: No suspicious reproducible mass is evident on these supplemental mammographic views. Multiple punctate benign-appearing microcalcifications are noted. ULTRASOUND: No suspicious mass or shadowing, cyst or other significant sonographic finding is detected in the upp er-outer quadrant left breast. IMPRESSION: 1. No mammographic evidence of malignancy 2. Routine annual mammographic screening is recommended. BI-RADS Category 2: Benign finding(s). Reviewed, dictated and finalized at location B. IMPRESSION: 1. No mammographic evidence of malignancy 2. Routine annual mammographic screening is recommended. BI-RADS Category 2: Benign finding(s).
== END 2022-06-11 11:19 | disposition home or self-care (01) ==
LOC: ANHIMG 11:21
PROVIDERS: PCP Emergency Medicine; Visit Provider Emergency Medicine
DX: R92.8 Other abnormal and inconclusive findings on diagnostic imaging of breast (principal)
CPT/HCPCS: 76642; 77061; 77065; G0279

== ENCOUNTER → 2022-08-28 08:33 | Outpatient (CLI) | payer MEDICARE, BC, SELFPAY ==
--- NOTE | ~2022-08-28 | XR_ITS ---
XR lumbar spine min 4V 08/28/2022 08:59 Indication: Radiculopathy. Low back pain. Procedure: 5 views of the lumbar spine Comparison: 05/06/2021 Findings: There is mild dextroscoliosis. There is disc narrowing at all lumbar levels. There is moder ate facet hypertrophy at L4-5 and L5-S1. There is grade 1 degenerative spondylolisthesis at L4-5. The re are cholecystectomy clips. No fracture or traumatic malalignment. Impression: 1: Moderate lumbar spondylosis with dextroscoliosis. Reviewed, dictated and finalized at location [] Impression: 1: Moderate lumbar spondylosis with dextroscoliosis.
== END ==
PROVIDERS: PCP Emergency Medicine; Visit Provider Nurse Practitioner Family
DX: M47.26 Other spondylosis with radiculopathy, lumbar region (principal)
CPT/HCPCS: 72110

== ENCOUNTER 2022-11-25 10:02 | Outpatient (CLI) | payer MEDICARE, BC, SELFPAY ==
--- NOTE | 2022-11-27 15:59 | WPDHOLTEREM ---
Holter/Event Monitor Holter/Event Monitor Date of procedure: 11/25/22 Holter/Event Procedure: 48 Hr Holter Monitor Indications: Palpitations Conclusion: 1. 48 hour holter monitor on 11/25/22. 2. Underlying rhythm is sinus rhythm. HR range 47-101 bpm; average HR 67 bpm. 3. There are 253 premature supraventricular complexes, 18 supraventricular couplets and 3 supraventricular triplets. No supraventricular tachycardia. 4. There are 58 premature ventricular complexes. No ventricular tachycardia. 5. No sinoatrial or atrioventricular blocks. No significant pauses greater than 2 seconds. 6. No symptoms available for correlation.
== END 2022-11-25 10:03 | disposition home or self-care (01) ==
LOC: ANHCARD 10:03
PROVIDERS: PCP Emergency Medicine; Visit Provider Physician Assistant
DX: R00.2 Palpitations (principal)
CPT/HCPCS: 93225; 93226

== ENCOUNTER 2023-08-12 09:44 | Outpatient (CLI) | payer MEDICARE, BC, SELFPAY ==
--- NOTE | ~2023-08-12 | MM_ITS ---
EXAMINATION: MM screening [facility] BI w surnider HISTORY: Screening TECHNIQUE: Craniocaudal and mediolateral oblique 3-D tomosynthesis images were obtained and synthetic 2-D images were generated. CAD analysis was submitted and interpreted. COMPARISON: Comparison to multiple prior studies sequentially, with oldest reviewed study dated 10/2019. BREAST PARENCHYMAL COMPOSITION: Not dense: There are scattered areas of fibroglandular density. FINDINGS: The breasts are stable. No new masses, calcifications or architectural distortion are ident ified in either breast to suggest malignancy. IMPRESSION: 1. Stable bilateral mammogram without evidence for malignancy. 2. Routine yearly screening mammogram and regular clinical breast examination are recommended. BI-RADS Category 2: Benign finding(s). Reviewed, dictated and finalized at location B. IMPRESSION: 1. Stable bilateral mammogram without evidence for malignancy. 2. Routine yearly screening mammogram and regular clinical breast examination a re recommended. BI-RADS Category 2: Benign finding(s).
== END 2023-08-12 09:45 | disposition home or self-care (01) ==
PROVIDERS: PCP Emergency Medicine; Visit Provider Emergency Medicine
DX: Z12.31 Encounter for screening mammogram for malignant neoplasm of breast (principal); R92.8 Other abnormal and inconclusive findings on diagnostic imaging of breast
CPT/HCPCS: 77063; 77067

== ENCOUNTER 2023-11-25 10:06 | Outpatient (CLI) | payer MEDICARE, BC, SELFPAY | END 2023-11-25 10:07 | disposition home or self-care (01) | LOC: ANHBWCAUD 10:07 | PROVIDERS: PCP Emergency Medicine; Visit Provider Emergency Medicine | DX: H91.93 Unspecified hearing loss, bilateral (principal); H81.09 Meniere's disease, unspecified ear | CPT/HCPCS: 92557; 92567 ==

== ENCOUNTER 2024-03-14 12:44 | Outpatient (CLI) | payer MEDICARE, BC, SELFPAY ==
--- NOTE | ~2024-03-14 | CT_ITS ---
CT sinus wo con Ordering provider: Joaquín Olvera M.D. History: . Chronic ethmoidal sinusitis . Comparison: June 22, 2007 Technique: Thin slice Scans CT of the paranasal sinuses was performed with coronal and sagittal refor matted images. No IV contrast. . Automated exposure control and iterative reconstruction technique w ere employed. The dose-length product was 411.72 mGy-cm. Findings: NASAL SEPTUM: midline. OSTEOMEATAL UNITS: Bilaterally patent. NASAL TURBINATES AND NASOPHARYNX: Normal. PARANASAL SINUSES: Right sphenoid sinus disease. VISUALIZED MASTOIDS: Effusion in the left mastoid air cells. Minimal fluid in the left middle ear. Cl inical correlation and Follow-up advised. BONES: Normal. SUPERFICIAL SOFT TISSUES/VISUALIZED BRAIN PARENCHYMA: Normal. IMPRESSION: Right sphenoid sinus disease. Effusion the left mastoid air cells with minimal fluid in the left middle ear. Follow-up is advised t o exclude early cholesteatoma. Reviewed, dictated and finalized at location A. TURBINE ENGINEER IMPRESSION: Right sphenoid sinus disease. Effusion the left mastoid air cells with minimal fluid in the left middle ear. Follow-up is advised to exclude early cholesteatoma.
== END 2024-03-14 12:45 | disposition home or self-care (01) ==
LOC: GOSHIMG 12:45
PROVIDERS: PCP Otolaryngology; Visit Provider Otolaryngology
DX: J32.2 Chronic ethmoidal sinusitis (principal); J32.3 Chronic sphenoidal sinusitis; H74.8X2 Other specified disorders of left middle ear and mastoid
CPT/HCPCS: 70486

== ENCOUNTER 2024-05-05 17:56 | Emergency (ER) | payer MEDICARE, BC, SELFPAY ==
--- NOTE | ~2024-05-05 | CT_ITS ---
EXAMINATION: CT cervical spine wo con DATE: 05/05/2024 19:38 INDICATION: Head injury TECHNIQUE: Computed tomography (CT) of the cervical spine was performed without intravenous contrast. Automated exposure control and iterative reconstruction technique were employed. The dose-length pro duct was 393.89 mGy-cm. COMPARISON: None FINDINGS: 10 degrees cervical dextrocurvature. Straightening of the normal cervical lordosis. Vertebral body he ights are normal. No fracture. Severe disc height loss with degenerative endplate changes and moderat e to severe uncovertebral osteoarthritis at C4-C5, C5-6 and C6-C7. There are posterior disc osteophyt e and heterotopic ossification along the posterior longitudinal ligament resulting in mild central ca nal stenosis at C5-C6 and C6-C7 and mild to moderate right-sided pelviectasis predominance canal sten osis at C4-C5. Multilevel mild cervical facet osteoarthritis. There is moderate neural foraminal sten osis on the right at C5-C6 and mild neural foraminal stenosis on the bilaterally at C4-C5 and on the left at and C6-C7. Visualized apices of lungs are clear. Small amount of atherosclerotic calcificatio n at the bilateral carotid bulbs. Cervical soft tissues are otherwise unremarkable. Left mastoid effu nunu. IMPRESSION: 1. Severe cervical spondylosis with no acute osseous abnormality. Reviewed, dictated and finalized at location A. EM PROGRAMMER
--- NOTE | ~2024-05-05 | CT_ITS ---
EXAMINATION: CT brain wo con DATE: 05/05/2024 19:37 INDICATION: Head injury TECHNIQUE: Computed tomography (CT) of the head was performed without intravenous contrast. Sagittal and coronal reconstructions were performed. The mA was adjusted according to patient size. Iterative reconstruction technique was employed. The dose-length product was 681.00 mGy-cm. COMPARISON: Sinus CT dated 03/14/2024 and brain MR dated 05/10/2014 FINDINGS: No fracture. No acute intracranial hemorrhage, acute infarction or abnormal extra axial fluid collect ion. There is minimal scattered white matter hypoattenuation consistent with chronic small vessel isc hemic disease. Symmetric prominence of the sulci and ventricles consistent with moderate age-appropri ate diffuse cerebral volume loss. No mass/mass effect. Changes of bilateral intraocular lens replacem ent. Mucosal thickening in the right sphenoid and left maxillary sinuses. Unchanged moderate left mas toid effusion. IMPRESSION: 1. No fracture or acute intracranial process. 2. Age-related changes including moderate diffuse volume loss and minimal scattered white matter hypo attenuation consistent with chronic small vessel ischemic disease. Reviewed, dictated and finalized at location A. FRAMING MANAGER IMPRESSION: 1. No fracture or acute intracranial process. 2. Age-related changes including moderate diffuse volume loss and minimal scatt ered white matter hypoattenuation consistent with chronic small vessel ischemic disease.
--- OUTSIDE RECORDS SUMMARY | 2024-05-05 17:58 | XMS_ITS | Patient Health Summary ---
Author Organization [facility] Address [address] [place] [address] Care Team Providers Care State Appellate Clerk Name Role Phone Valorie Fatima MD Primary Care Provider Note from [facility],non-owned Affiliates and Associated Physician Practices is amultiple site organization consisting of ambulatory clinics and hospital sitesin [place], [place], [place] and [place]. This disclosure is being madepursuant to the Care Everywhere program and may not contain all information available regarding this patient. Last updated 17.[facility] Allergies * Cephalosporins(Rash) -Medium Criticality * Penicillins(Rash) -Medium Criticality * Sulfa Drugs(Rash) -Medium Criticality Medications * Be aware that medications may not be up to date on this document. Alwaysverify current medications with the patient. * atenolol (TENORMIN) 25 MG tablet(Started 04/15/2021) Take 25 mg by mouth once daily * atorvastatin (LIPITOR) 40 MG tablet(Started 03/16/2021) Take 40 mg by mouth once daily * diclofenac sodium EC (VOLTAREN) 75 MG tablet(Started 03/16/2021) Take 75 mg by mouth 2 times daily * estradiol (ESTRACE) 1 MG tablet(Started 03/17/2021) Take 1 mg by mouth once daily * JARDIANCE 10 MG tablet(Started 03/16/2021) Take 10 mg by mouth once daily * levothyroxine (SYNTHROID) 175 MCG tablet(Started 04/15/2021) Take 175 mcg by mouth once daily * metFORMIN ER 24hr (GLUCOPHAGE XR) 500 MG tablet(Started 03/18/2021) Take 750 mg by mouth once daily * omeprazole (PRILOSEC) 40 MG capsule(Started 03/16/2021) Take 40 mg by mouth once daily * fluticasone propionate (FLONASE) 50 MCG/ACT nasal spray(Started 03/16/2021) Chauncey 2 sprays into each nostril once daily * icosapent ethyl (VASCEPA) 1 g capsule(Started 05/14/2021) Take 1 g by mouth once daily * hydrALAZINE (APRESOLINE) 100 MG tablet Take 100 mg by mouth 3 times daily * Multiple Vitamins-Minerals (WOMENS HAIR, SKIN & NAILS PO) Take 1 tablet by mouth once daily * Magnesium 400 MG Take 400 mg by mouth once daily * Lfgbxemt-Oorrt-Vtxxeeyjwv Acid (MOVE FREE MiniVax) 40-5-3.3 MG TABS Take 1 tablet by mouth once daily * guaiFENesin ER 12hr (MUCINEX) 600 MG tablet Take 600 mg by mouth every 12 hours * multivitamin (OCUVITE PRESERVISION) TABS tablet Take 2 tablets by mouth once daily * cyanocobalamin (VITAMIN B-12) 1000 MCG tablet Take 1,000 mcg by mouth once daily * vitamin D3 (CHOLECACIFEROL) 125 MCG (5000 UT) Take 5,000 Units by mouth once daily * polyvinyl alcohol-povidone PF (REFRESH) 1.4-0.6 % ophthalmic solution Instill 1 drop into both eyes 3 times daily as needed * cyclobenzaprine (FLEXERIL) 5 MG tablet(Started 05/30/2021) Take 1 (one) tablet by mouth 3 times daily as needed Reasons: Muscle Spasm 1 refill by 05/30/2022 Active Problems Problem Noted Date Diagnosed Date Other specified disorders of right ear 5 Tinnitus of right ear 01/01/2015 Migraine with aura and witho ut status migrainosus, not intractable 06/26/2014 Other specified hearing loss, right ear 06/27/19 15 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 Dizziness and giddiness 06/26/2014 Social History Tobacco Use Types Packs/Day Years Used Date Smoking Tobacco: Never Smokeless Tobacco: Never Alcohol Use Standard Drinks/Week Comments No 0 (1 standard drink = 0.6 oz pur e alcohol) Sex and Gender Information Value Date Recorded Sex Assigned at Female 12/08/2020 4:26 PM CDT Gender Identity Female 12/08/2020 4:26 PM CDT Sexual Orientation Straight 12/08/2020 4: 26 PM CDT Last Filed Vital Signs Vital Sign Reading Time Taken Comments Blood Pressure 137/82 05/30/2021 1:56 PM CDT Pulse 82 05/30/2021 1:56 PM CDT Temperature 36.5 C (97.7 F) 06/26/2014 2:57 PM CDT Respiratory Rate 12 06/26/2014 2:57 PM CDT Oxygen Saturation - - Inhaled Oxygen Concentration - - Weight 70.3 kg (155 lb) 05/30/2021 1:56 PM CDT Height 170.2 cm (5' 7 ) 05/30/2021 1:56 PM CDT Body Mass Index 24.28 05/30/2021 1:56 PM CDT Care Teams State Appellate Clerk Relationship Specialty Start Date End Date Valorie Fatima MD [address] [place] [address] PCP - General 05/21/21
--- OUTSIDE RECORDS SUMMARY | 2024-05-05 17:58 | XMS_ITS | Referral Summary ---
Author Organization [facility] [employer] Address [address] [place] [address] Care Team Providers Care Computer Recycling Worker Name Role Phone Valorie Fatima MD Primary Care Provider [phone] Source Comments [facility] [employer],non-owned Affiliates and Associated Physician Practices is amultiple site organization consisting of ambulatory clinics and hospital sitesin [place], [place], [place] and [place]. This disclosure is being madepursuant to the Care Everywhere program and may not contain all information available regarding this patient. Last updated 17.[facility] [employer] Allergies Active Allergy Reactions Criticality Noted Date Comments Cephalosporins Rash Medium 06/22/2014 Penicillins Rash Medium 06/22/2014 Sulfa Drugs Rash Medium 06/22/2014 Medications * Be aware that medications may not be up to date on this document. Alwaysverify current medications with the patient. Medication Sig Dispensed Refills Start Date End Date Status atenolol (TENORMIN) 25 MG tablet Take 25 mg by mouth once daily 04/15/2021 Active atorvastatin (LIPITOR) 40 MG tablet Take 40 mg by mouth once daily 03/16/2021 Active diclofenac sodium EC (VOLTAREN) 75 MG tablet Take 75 mg by mouth 2 times daily 03/16/2021 Active estradiol (ESTRACE) 1 MG tablet Take 1 mg by mouth once daily 03/17/2021 Active JARDIANCE 10 MG tablet Take 10 mg by mouth once daily 03/16/2021 Active levothyroxine (SYNTHROID) 175 MCG tablet Take 175 mcg by mouth once daily 04/15/2021 Active metFORMIN ER 24hr (GLUCOPHAGE XR) 500 MG tablet Take 750 mg by mouth once daily 03/18/2021 Active omeprazole (PRILOSEC) 40 MG capsule Take 40 mg by mouth once daily 03/16/2021 Active fluticasone propionate (FLONASE) 50 MCG/ACT nasal spray [place] 2 sprays into each nostril once daily 03/16/2021 Active icosapent ethyl (VASCEPA) 1 g capsule Take 1 g by mouth once daily 05/14/2021 Active hydrALAZINE (APRESOLINE) 100 MG tablet Take 100 mg by mouth 3 times daily Active Multiple Vitamins-Minerals (WOMENS HAIR, SKIN & NAILS PO) Take 1 tablet by mouth once daily Active Magnesium 400 MG Take 400 mg by mouth once daily Active Fxdrrwtm-Cbwrw-Zaachc onic Acid (MOVE FREE ULTRA ZapMe HEALTH) 40-5-3.3 MG TABS Take 1 tablet by mouth once daily Active guaiFENesin ER 12hr (MUCINEX) 600 MG tablet Take 600 mg by mouth every 12 hours Active multivitamin (OCUVITE PRESERVISION) TABS tablet Take 2 tablets by mouth once daily Active cyanocobalamin (VITAMIN B-12) 1000 MCG tablet Take 1,000 mcg by mouth once daily Active vitamin D3 (CHOLECACIFEROL) 125 MCG (5000 UT) Take 5,000 Units by mouth once daily Active polyvinyl alcohol-povidone PF (REFRESH) 1.4-0.6 % ophthalmic solution Instill 1 drop into both eyes 3 times daily as needed Active cyclobenzaprine (FLEXERIL) 5 MG tabletIndications:Mus aureliano Spasm Take 1 (one) tablet by mouth 3 times daily as needed Reasons: Muscle Spasm 30 tablet 1 05/30/2021 Active Active Problems Problem Noted Date Diagnosed Date [...] Mass Index 24.28 05/30/2021 1:56 PM CDT Plan of Treatment Not on file Care Teams Computer Recycling Worker Relationship Specialty Start Date End Date Valorie Fatima MD [address] [place] [address] PCP - General 05/21/21
--- OUTSIDE RECORDS SUMMARY | 2024-05-05 17:58 | XMS_ITS | Referral Summary ---
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
--- OUTSIDE RECORDS SUMMARY | 2024-05-05 17:58 | XMS_ITS | Clinical Summary ---
Author Organization [facility] [employer] Address [address] [place] [address] Care Team Providers Care Academic Success Coordinator Name Role Phone Valorie Fatima MD Primary Care Provider [phone] Source Comments [facility],non-owned Affiliates and Associated Physician Practices is amultiple site organization consisting of ambulatory clinics and hospital sitesin [place], [place], [place] and [place]. This disclosure is being madepursuant to the Care Everywhere program and may not contain all information available regarding this patient. Last updated 17.[facility] Allergies Active Allergy Reactions Criticality Noted Date [...] fluticasone propionate (FLONASE) 50 MCG/ACT nasal spray [place] 2 sprays into each nostril once daily [...] 400 mg by mouth once daily Active Duvrwgsp-Jznpl-Jymulr onic Acid (MOVE FREE ULTRA NVELO HEALTH) 40-5-3.3 MG TABS Take 1 tablet [...] 05/30/2021 1:56 PM CDT Plan of Treatment Health Maintenance Due Date Last Done Comments BONE DENSITY TESTING 1955 COLOGUARD (AGES 45-75) - COL ON CA SCREENING 1955 COLON MONITORING 1955 COLONOSCOPY - COLON CA SCREENING 1955 CT COLONOGRAPHY - COLON CA SCREENING 1955 Colorectal Cancer Screening 1955 FIT - COLON CA SCREENING 1955 FLEX SIG - COLON CA SCREENING 1955 MAMMOGRAM 1955 MEDICARE AWV 12 MONTHS 1955 HEPATITIS C SCREENING 11/24/1973 DTAP/TDAP/TD VACCINES (1 - Tdap) 11/28/1974 PNEUMOCOCCAL VACCINE 50+ (1 of 1 - PCV) 11/28/2005 ZOSTER VACCINE (1 of 2) 11/28/2005 Respiratory Syncytial Virus (RSV) Vaccine Pt: or over 60 yrs (1 - Risk 60-74 years 1-dose series) 2015 COVID-19 VACCINE (2023-2 5 season) 2023 01/08/2021, 06/04/2020, 05/02/2020 INFLUENZA VACCINE (#1) 2023 , 11/05/2018, 12/13/2017 DEPRESSION SCREENING 03/16/2024 HEPATITIS B VACCINE Aged Out No longe r eligible based on patient's age to complete this topic HIB VACCINE Aged Out No longer eligi ble based on patient's age to complete this topic HPV VACCINE Aged Out No longer eligi ble based on patient's age to complete this topic MENINGOCOCCAL (Group B) VACCINE Aged Out No longer eligible b ased on patient's age to complete this topic MENINGOCOCCAL VACCINE Aged Out No abhilash holger eligible based on patient's age to complete this topic Care Teams Academic Success Coordinator Relationship Specialty Start Date End Date Valorie Fatima MD [address] [place] [id number] PCP - General 05/21/21
--- OUTSIDE RECORDS SUMMARY | 2024-05-05 17:58 | XMS_ITS | Continuity of Care Document ---
Author Organization [facility] [place] [address] [place] [address] Phone Care Team Providers Care Assistant To The Ceo Name Role Phone Chen OD, Miguel Unavailable Unavailable Procedures Procedure Date Eye Exam & Treatment Refraction Eye Exam & Treatment Refraction No Charge Contact Lens Check Eye Exam, New Patient Refraction Advance Directives Directive Yes / No Effective Date File Name No Information Encounters Encounter Description Practice Location Reason(s) For Visit Diagnoses Date Provider Providers Copied on Encounter [facility], [address] [place] [address] [address], [place], [place], [id number], [place] tel:[phone] [facility] No Information 2-201 0 Chen OD Miguel. [address], [place], [place], [facility], [place]. tel:[phone] [facility], [address], [place], [place], [id number], [place] tel:[phone] [facility] No Information 7-200 9 Chen OD Miguel. [address], [place], [address], [place]. tel:[phone] [facility], [address] [place] [address] [address], [place], [place], [address], [place] tel:[phone] [facility] No Information 6200 8 Chen OD Miguel. [address], [place], [address], [place]. tel:[phone] [facility], [address], [place], [place], [address], [place] tel:[phone] [facility] No Information 7200 8 Chen OD Miguel. [address] [facility] [address] [facility] [address] [address] , [address], [place], [address], [place]. tel:[phone] Family History Family Member Type Diagnosis Age At Onset No Information Payers Payer name Insurance type Covered constitution party ID Fabiano maldonado(s) [employer] Vision Plan CI [id number] Social History Type Description Quantity Date Captured Comments Sex Female Smoking Status No Information Chief Complaint And Reason For Visit No Information Reason For Referral Reason For Referral No Information History Of Present Illness Encounter Date Complaint History Of Prese nt Illness No Information Functional Status Date Functional Assessmen t No Information Instructions Date Instruction Additional Infor mation No Information Assessments Type Assessment Date No Information Patient Care Teams Name Effective Dates (start - stop) Status Members No Information
--- OUTSIDE RECORDS SUMMARY | 2024-05-05 17:58 | XMS_ITS | Clinical Summary ---
Author Organization [facility] Address [address] [place] [address] Care Team Providers Care Afternoon Nanny Name Role Phone Unavailable Primary Care Provider Unavailabl e Social History Tobacco Use Types Packs/Day Years Used Date Smoking Tobacco: Never Assessed Comments Unknown Sex and Gender Information Value Date Recorded Sex Assigned at Not on file Legal Sex Female 7:09 PM CDT Gender Identity Not on file Sexual Orientation Not on file Plan of Treatment Health Maintenance Due Date Last Done Comments Colorectal Cancer Screening Colonoscopy (10 Years) 1955 Hepatitis C 11/28/1973 DTaP, Tdap and Td Vaccines ( 1 - Tdap) 11/28/1974 Mammogram Screening 1995 Zoster Vaccines (1 of 2) 11/28/2005 Dexa Scan (General) 11/28/2020 Pneumococcal Vaccine: 65+ Ye ars (1 of 1 - PCV) 11/28/2020 COVID-19 Vaccine ( - 2023-2 5 season) 2023 Influenza Adult (#1) 2023 RSV Immunization or 60+ Years (1 - 1-dose 75+ series) 11/28/2030 Meningococcal B Vaccine Aged Out No l onger eligible based on patient's age to complete this topic Meningococcal Vaccine Aged Out No abhilash holger eligible based on patient's age to complete this topic RSV Immunizations Under 20 Months Aged Out No longer eligible based on patient's age to complete this topic
--- OUTSIDE RECORDS SUMMARY | 2024-05-05 17:58 | XMS_ITS | Clinical Summary ---
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
--- NOTE | 2024-05-05 18:17 | ED.FALL ---
HPI - Fall General Chief Complaint: Fall <Khushbu Barone PA-C - Last Filed: 05/06/24 18:11> Stated Complaint: trip and fall, hit head, hematoma to forehead <Khushbu Barone PA-C - Last Filed: 05/06/24 18:11> Time Seen by Provider: 05/05/24 18:17 <Khushbu Barone PA-C - Last Filed: 05/06/24 18:11> Focused HPI: This is a 68 year old female that presents to the ER after a trip and fall with head injury. Reports she fell forward and hit her head. She did not lose consciousness. She does not take blood thinners. GENERAL: Well-appearing, well-nourished, and in no acute distress. HEAD: Normocephalic. Hematoma to the forehead CHEST: Clear to auscultation. ?No respiratory distress. HEART: Regular rate and rhythm.? NEURO: ?Alert and oriented x3. Patient screened in triage and initial orders placed.? ?Additional care and disposition to be based upon?diagnostic testing and treatment. <Khushbu Barone PA-C - Last Filed: 05/06/24 18:11> History of Present Illness HPI Narrative: I agree with the assessment and documentation by Khushbu Barone PA-C. <Alyssa Bishop APRN - Last Filed: 05/05/24 21:46> Related Data Home Medications: Home Medications ?Medication ?Instructions ?Recorded ?Confirmed ?Last Taken ?Type azelastine 137 mcg (0.1 %) nasal 137 mcg intranasal Q12H 11/11/21 01/05/24 Unknown History spray vitamins A,C,X-gtmj-vkfmfs 2,148 1 tablet PO BID 04/16/22 01/05/24 Unknown History mcg-113 mg-45 mg-17.4 mg tablet (PreserVision AREDS) triamcinolone acetonide 0.1 % 1 applic topical BID PRN 10/29/23 01/05/24 Unknown History topical cream cholecalciferol (vitamin D3) 25 25 mcg PO DAILY 01/01/24 01/05/24 Unknown History mcg (1,000 unit) capsule mecobalamin (vitamin B12) 1,000 1,000 mcg PO DAILY 01/01/24 01/05/24 Unknown History mcg chewable tablet <Khushbu Barone PA-C - Last Filed: 05/06/24 18:11> Allergies/Adverse Reactions: Allergies Allergy/AdvReac Type Severity Reaction Status Date / Time cephalexin Allergy Unknown ill Verified 02/23/24 14:30 Penicillins Allergy Unknown in college Verified 02/23/24 14:30 Sulfa (Sulfonamide Allergy Unknown Skin Verified 02/23/24 14:30 Antibiotics) Reaction <Khushbu Barone PA-C - Last Filed: 05/06/24 18:11> Review of Systems Review of Systems: All systems reviewed & are unremarkable except as noted in HPI and below <Alyssa Bishop APRN - Last Filed: 05/05/24 21:46> [facility] Past Medical History Medical History: Medical History Abnormal CT scan, esophagus Nausea and vomiting in adult jail use of drug Feeling of incomplete bladder emptying Normal colonoscopy (~2011) Abnormal colonoscopy (~2006) <Khushbu Barone PA-C - Last Filed: 05/06/24 18:11> Surgical History Surgical History: Surgical History H/O: hysterectomy (~1980) Hx of cholecystectomy (~2001) <Khushbu Barone PA-C - Last Filed: 05/06/24 18:11> Family History Family History: Family History Mother Family history of osteoporosis Family history of elevated blood lipids Family history of arthritis Father Hypertension Patient's father is Other No family history of allergies No family history of cardiovascular disease No family history of diabetes mellitus No family history of hypertension No family history of malignant neoplasm <Khushbu Barone PA-C - Last Filed: 05/06/24 18:11> Social History Social History: Social History Social History: Caffeine-soda occasionally Smoking status: Never smoker Second hand tobacco smoke exposure: No Alcohol intake: current Alcohol use details: rarely Substance use: never Substance use type: does not use Do You Feel Safe in your Home?: Yes Lack of Transportation: No Lack of Food: Never True Current Housing: I Have Housing Concerned About Future Housing: No Difficulty Paying Gas/Electric Bills: No Difficulty Paying for Meds: No Currently Unemployed: No Education: Master's Degree or Higher Difficulty w/ Childcare or Family Care: No Gender identity (if verbalized by the patient): Female Spiritual care concerns: No <Khushbu Barone PA-C - Last Filed: 05/06/24 18:11> Exam Narrative: GENERAL: Well appearing, well-nourished, non-toxic, in no acute distress. HEAD: Normocephalic, large hematoma to center of forehead, small abrasion with no bleeding. NECK: Supple. No adenopathy, no masses. RESPIRATORY: Airway patent, respirations nonlabored. Clear to auscultation bilaterally, no rales, rhonchi, wheezing. CARDIOVASCULAR: Regular rate and rhythm without murmurs, rubs, or gallops. Peripheral pulses 2+ and equal bilaterally. ABDOMINAL: Soft, nontender, nondistended, no hepatosplenomegaly. Normoactive BS. MUSCULOSKELETAL: Moves all extremities. Strength/ROM intact without gross deformities. SKIN: Warm, dry, normal color. No rashes. NEURO: A&O X3. Speech clear. Cranial nerves II-XII grossly intact. Steady gait. No ataxic movements. PSYCHIATRIC: Appropriate mood and affect. Normal interaction. <Alyssa Bishop APRN - Last Filed: 05/05/24 21:46> Course Vital Signs Vital signs: Vital Signs Temperature 98.0 F 05/05/24 18:29 Pulse Rate 56 L 05/05/24 18:29 Respiratory Rate 16 05/05/24 18:29 Blood Pressure 111/54 L 05/05/24 18:29 Pulse Oximetry 100 05/05/24 18:29 Oxygen Delivery Room Air 05/05/24 18:29 Temperature 97.9 F 05/05/24 21:58 Pulse Rate 78 05/05/24 21:58 Respiratory Rate 19 05/05/24 21:58 Blood Pressure 118/57 L 05/05/24 21:58 Pulse Oximetry 100 05/05/24 21:58 Oxygen Delivery Room Air 05/05/24 18:29 <Khushbu Barone PA-C - Last Filed: 05/06/24 18:11> Vital Signs Temperature 98.0 F 05/05/24 18:29 Pulse Rate 56 L 05/05/24 18:29 Respiratory Rate 16 05/05/24 18:29 Blood Pressure 111/54 L 05/05/24 18:29 Pulse Oximetry 100 05/05/24 18:29 Oxygen Delivery Room Air 05/05/24 18:29 Temperature 97.9 F 05/05/24 21:58 Pulse Rate 78 05/05/24 21:58 Respiratory Rate 19 05/05/24 21:58 Blood Pressure 118/57 L 05/05/24 21:58 Pulse Oximetry 100 05/05/24 21:58 Oxygen Delivery Room Air 05/05/24 18:29 <Alyssa Bishop APRN - Last Filed: 05/05/24 21:46> MDM - Fall MDM Narrative Medical decision making narrative: This is a 68 year old female that presents to the ER after a trip and fall with head injury. Reports she fell forward and hit her head. She did not lose consciousness. She does not take blood thinners. Labs Ordered: None necessary Imaging Ordered: CT cervical spine, CT brain Medications Ordered: None necessary Results: CT scans indicate Severe cervical spondylosis with no acute osseous abnormalities Diagnosis: Concussion without loss of consciousness, hematoma Patient Education/Shared MDM: Results shared with patient. She endorses no pain at the time of examination. Patient strongly advised to follow-up with her PCP in the next couple of days. She will be not be discharged home with any new prescriptions. Strict return precautions provided. Patient verbalized understanding is in agreement with plan. Vital signs stable at time of discharge. All questions answered. <Alyssa Bishop APRN - Last Filed: 05/05/24 21:46> Differential Diagnosis Differential diagnosis: Likely syncope, compression fracture, concussion without loss of consciousness and other (cervical strain, subdural hematoma) <Alyssa Bishop APRN - Last Filed: 05/05/24 21:46> Imaging Data Attestation: I personally reviewed and interpreted this imaging study as follows: <Alyssa Bishop APRN - Last Filed: 05/05/24 21:46> Radiologist's impression: Impressions Head CT 05/05/24 19:38 IMPRESSION: 1. No fracture or acute intracranial process. 2. Age-related changes including moderate diffuse volume loss and minimal scattered white matter hypoattenuation consistent with chronic small vessel ischemic disease. Cervical Spine CT 05/05/24 19:42 IMPRESSION: 1. Severe cervical spondylosis with no acute osseous abnormality. <Alyssa Bishop APRN - Last Filed: 05/05/24 21:46> Critical Care Time Critical Care Time Critical Care Time: No <Khushbu Barone PA-C - Last Filed: 05/06/24 18:11> Discharge Plan Discharge Clinical Impression: Ground-level fall Concussion without loss of consciousness Qualifiers: Encounter type: initial encounter Qualified Code(s): S06.0X0A - Concussion without loss of consciousness, initial encounter Traumatic hematoma of forehead Qualifiers: Encounter type: initial encounter Qualified Code(s): S00.83XA - Contusion of other part of head, initial encounter <Khushbu Barone PA-C - Last Filed: 05/06/24 18:11> Patient Disposition: Home, Self-Care <Khushbu Barone PA-C - Last Filed: 05/06/24 18:11> Condition: Stable <Khushbu Barone PA-C - Last Filed: 05/06/24 18:11> Instructions: Antibiotic Form, Concussion (ED) <Khushbu Barone PA-C - Last Filed: 05/06/24 18:11> Additional Instructions: Please return to the ER with an worsening symptoms. Follow-up with primary care provider in the next 4-5 days. Take all regularly scheduled medications as prescribed. <Khushbu Barone PA-C - Last Filed: 05/06/24 18:11> Patient Language: Bulgarian <RICHMOND García Last Filed: 05/06/24 18:11> Prescriptions: No Action azelastine 137 mcg (0.1 %) aerosol,spray 137 mcg intranasal Q12H Rx Instructions: administer into each nostril triamcinolone acetonide 0.1 % cream 1 applic topical BID PRN cholecalciferol (vitamin D3) 25 mcg (1,000 unit) capsule 25 mcg PO DAILY mecobalamin (vitamin B12) 1,000 mcg tablet,chewable 1,000 mcg PO DAILY PreserVision AREDS 2,148 mcg-113 mg-45 mg-17.4mg Tablet 1 tablet PO BID Rx Instructions: administer with AM and PM meals tramadol 50 mg tablet 50 mg PO Q6H PRN (Reason: pain) Qty: 60 0RF fluticasone propionate 50 mcg/actuation spray,suspension See Rx Instructions .ROUTE .COMPLEX Qty: 16 3RF Dose Instruction: Use 2 spray(s) in each nostril once daily Rx Instructions: Use 2 spray(s) in each nostril once daily atenolol 25 mg tablet 25 mg PO DAILY Qty: 90 1RF sumatriptan succinate 25 mg tablet See Rx Instructions .ROUTE .COMPLEX PRN (Reason: Migraine Headache) Qty: 18 0RF Rx Instructions: TAKE 1 TABLET BY MOUTH AFTER ONSET OF MIGRAINE; MAY REPEAT AFTER 2 HOURS IF HEADACHE RETURNS, NOT TO EXCEED 200MG IN 24 HOUR estradiol 1 mg tablet 1 mg PO .COMPLEX Qty: 90 2RF Rx Instructions: 1 tablet daily levothyroxine 125 mcg tablet 125 mcg PO DAILY Qty: 90 1RF diclofenac sodium 75 mg tablet,delayed release (DR/EC) See Rx Instructions .ROUTE .COMPLEX Qty: 180 1RF Dose Instruction: Take 1 tablet by mouth twice daily Rx Instructions: Take 1 tablet by mouth twice daily pantoprazole 40 mg tablet,delayed release (DR/EC) 40 mg PO Q12HR Qty: 180 1RF atorvastatin 40 mg tablet See Rx Instructions .ROUTE .COMPLEX Qty: 90 1RF Dose Instruction: Take 1 tablet by mouth once daily Rx Instructions: Take 1 tablet by mouth once daily metformin 750 mg tablet extended release 24 hr 750 mg PO BID Qty: 180 1RF Jardiance 10 mg tablet See Rx Instructions .ROUTE .COMPLEX Qty: 90 1RF Dose Instruction: Take 1 tablet by mouth once daily Rx Instructions: Take 1 tablet by mouth once daily estradiol 0.01 % (0.1 mg/gram) cream See Rx Instructions .ROUTE .COMPLEX Qty: 43 1RF Dose Instruction: INSERT 1 APPLICATORFUL INTO VAGINA ONCE DAILY FOR 14 DAYS; THEN USE ONCE TO THREE TIMES A WEEK THEREAFTER Rx Instructions: INSERT 1 APPLICATORFUL INTO VAGINA ONCE DAILY FOR 14 DAYS; THEN USE ONCE TO THREE TIMES A WEEK THEREAFTER potassium chloride [Klor-Con M20] 20 mEq tablet,ER particles/crystals 20 meq PO DAILY Qty: 90 1RF hydrochlorothiazide 25 mg tablet 25 mg PO DAILY Qty: 90 3RF Rx Instructions: take 1 tablet daily <Khushbu Barone PA-C - Last Filed: 05/06/24 18:11> Follow-up/Referrals: Harini Campa MD [Primary Care Provider] - <Khushbu Barone PA-C - Last Filed: 05/06/24 18:11> Time of Disposition: 21:45 <Khushbu Barone PA-C - Last Filed: 05/06/24 18:11> 21:45 <Alyssa Bishop APRN - Last Filed: 05/05/24 21:46>
[2024-05-05 18:29] VITALS: BP 111/54; PULSE 56; RESP 16; TEMP 36.7; O2SAT 100
[2024-05-05 20:39] VITALS: BP 107/54; PULSE 66; RESP 18; TEMP 36.6; O2SAT 98
[2024-05-05 21:08] VITALS: BP 122/59; PULSE 56; RESP 18; O2SAT 100
--- OUTSIDE RECORDS SUMMARY | 2024-05-05 21:32 | XMS_ITS | Patient Health Summary ---
Author Organization [facility] Address [address] [place] [address] Care Team Providers Care Glass Inspector Name Role Phone Valorie Fatima MD Primary Care Provider [phone] Note from [facility],non-owned Affiliates and Associated Physician Practices is amultiple site organization consisting of ambulatory clinics and hospital sitesin [place], [place], [place] and [place]. This disclosure is being madepursuant to the Care Everywhere program and may not contain all information available regarding this patient. Last updated 17.[facility] Allergies * Cephalosporins(Rash) -Medium Criticality * Penicillins(Rash) [...] propionate (FLONASE) 50 MCG/ACT nasal spray(Started 03/16/2021) [place] 2 sprays into each nostril once daily [...] 400 mg by mouth once daily * Srybjsnp-Grquy-Asjffwrvxv Acid (MOVE FREE [employer]) 40-5-3.3 MG TABS Take 1 tablet by [...] 24.28 05/30/2021 1:56 PM CDT Care Teams Glass Inspector Relationship Specialty Start Date End Date Valorie Fatima MD [address] [place] [address] PCP - General 05/21/21
--- OUTSIDE RECORDS SUMMARY | 2024-05-05 21:32 | XMS_ITS | Referral Summary ---
Author Organization [facility] Address [address] [place] [address] Care Team Providers Care Source Inspector Name Role Phone Valorie Fatima MD Primary Care Provider [phone] Source Comments [facility],non-owned Affiliates and Associated Physician Practices is amultiple site organization consisting of ambulatory clinics and hospital sitesin [place], [place], [place] and [place]. This disclosure is being madepursuant to the Care Everywhere program and may not contain all information available regarding this patient. Last updated 17.[facility] Allergies Active Allergy Reactions Criticality Noted Date [...] fluticasone propionate (FLONASE) 50 MCG/ACT nasal spray [place] 2 sprays into each nostril once daily [...] 400 mg by mouth once daily Active Fdnfqxxt-Rkmqr-Onhusa onic Acid (MOVE FREE ULTRA [employer] [facility]) 40-5-3.3 MG TABS Take 1 tablet [...] of Treatment Not on file Care Teams Source Inspector Relationship Specialty Start Date End Date Valorie Fatima MD [address] [place] [address] PCP - General 05/21/21
--- OUTSIDE RECORDS SUMMARY | 2024-05-05 21:32 | XMS_ITS | Clinical Summary ---
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
--- OUTSIDE RECORDS SUMMARY | 2024-05-05 21:32 | XMS_ITS | Continuity of Care Document ---
Author Organization [facility] Address [address] [place] [address] Phone Care Team Providers Care Truck Striker Name Role Phone Chen OD, Miguel Unavailable Unavailable Procedures Procedure Date Eye Exam & Treatment Refraction Eye Exam & Treatment Refraction No Charge Contact Lens Check Eye Exam, New Patient Refraction Advance Directives Directive Yes / No Effective Date File Name No Information Encounters Encounter Description Practice Location Reason(s) For Visit Diagnoses Date Provider Providers Copied on Encounter [facility], [address] [place] [address] [address], [place], [place], [id number], [place] tel:[phone] [facility] No Information 2-201 0 Chen OD Miguel. [address], [place], [place], Former[facility], [place]. tel:[phone] [facility], [address], [place], [place], [address], [place] tel:[phone] [facility] No Information 7-200 9 Chen OD Miguel. [address], [place], [address], [place]. tel:[phone] [facility], [address] [place] [address] [address], [place], [place], [address], [place] tel:[phone] [facility] No Information 6200 8 Chen OD Miguel. [address], [place], [address], [place]. tel:[phone] [facility], [address], [place], [place], [id number], [place] tel:[phone] [facility] No Information 7200 8 Chen OD Miguel. [address], [place], [address], [place]. tel:[phone] Family History Family Member Type Diagnosis Age At Onset No Information Payers Payer name Insurance type Covered democrat ID Fabiano maldonado(s) [employer] Vision Plan CI [id number] Social History Type Description Quantity Date Captured [...]
--- OUTSIDE RECORDS SUMMARY | 2024-05-05 21:32 | XMS_ITS | Referral Summary ---
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
--- OUTSIDE RECORDS SUMMARY | 2024-05-05 21:32 | XMS_ITS | Clinical Summary ---
Author Organization [facility] Address [address] [place] [address] Care Team Providers Care Manager Star Name Role Phone Unavailable Primary Care Provider [...]
--- OUTSIDE RECORDS SUMMARY | 2024-05-05 21:32 | XMS_ITS | Clinical Summary ---
Author Organization [facility] Address [address] [place] [address] Care Team Providers Care Lamp Assembler Name Role Phone Valorie Fatima MD Primary Care Provider [phone] Source Comments [facility],non-owned Affiliates and Associated Physician Practices is amultiple site organization consisting of ambulatory clinics and hospital sitesin [place], [place], [place] and [place]. This disclosure is being madepursuant to the Care Everywhere program and may not contain all information available regarding this patient. Last updated 17.[facility] Allergies Active Allergy Reactions Criticality Noted Date [...] fluticasone propionate (FLONASE) 50 MCG/ACT nasal spray [place] 2 sprays into each nostril once daily [...] 400 mg by mouth once daily Active Pxlvwjww-Ebpwp-Fkjiyt onic Acid (MOVE FREE ULTRA [employer] [facility]ALTH) 40-5-3.3 MG TABS Take 1 tablet [...] age to complete this topic Care Teams Lamp Assembler Relationship Specialty Start Date End Date Valorie Fatima MD [address] [place] [id number] PCP - General 05/21/21
[2024-05-05 21:58] VITALS: BP 118/57; PULSE 78; RESP 19; TEMP 36.6; O2SAT 100
== END 2024-05-05 22:00 | disposition home or self-care (01) ==
PROVIDERS: Emergency Provider Registered Nurse; PCP Family Medicine
DX: S06.0X0A Concussion without loss of consciousness, initial encounter (principal); S00.83XA Contusion of other part of head, initial encounter; Z90.710 Acquired absence of both cervix and uterus; Z90.49 Acquired absence of other specified parts of digestive tract; M47.812 Spondylosis without myelopathy or radiculopathy, cervical region; W01.0XXA Fall on same level from slipping, tripping and stumbling without subsequent striking against object, initial encounter
CPT/HCPCS: 70450; 72125; 99284

== ENCOUNTER 2024-08-09 12:52 | Outpatient (CLI) | payer MEDICARE, BC, SELFPAY ==
--- NOTE | ~2024-08-09 | MR_ITS ---
MRI of the lumbar spine Clinical History: Radiculopathy Technique: Axial T2-weighted images, and sagittal T1-weighted, T2-weighted, and and T2 fat-sat images were acquired. COMPARISON: 05/13/2021 Findings: No acute fracture identified. There is minimal grade 1 retrolisthesis of L1 over L2. No salvador picious bone marrow signal abnormality seen. At L1-L2, there is severe degenerative disc narrowing, markedly worsened as compared to prior exam. T here is mild facet arthropathy. No central canal stenosis. There is moderate bilateral neural foramin al narrowing. At L2-L3, there is minimal disc bulge with moderate facet hypertrophy. No spinal canal stenosis or ne ural foraminal narrowing. L3-L4, there is disc bulge and severe facet arthropathy, with severe spinal canal stenosis/thecal sac compression. There is moderate to severe left neural foraminal narrowing, and mild to moderate right neural foraminal narrowing. L4-L5, there is disc bulge and severe facet arthropathy. There is moderate to severe spinal canal eric nosis/thecal sac compression. There is moderate bilateral neural foraminal narrowing, left worse than right. At L5-S1, there is advanced degenerative disc narrowing. There is mild diffuse disc bulge and mild to moderate facet arthropathy. No central canal stenosis. There is moderate to advanced left neural for aminal narrowing, and mild right neural foraminal narrowing. Paravertebral soft tissues are unremarkable. Impression: Advanced degenerative spondylosis, especially at L3-L4 and L4-L5, there is advanced spinal canal sten osis/thecal sac compression. Please see details above. Reviewed, dictated and finalized at [facility]. Impression: Advanced degenerative spondylosis, especially at L3-L4 and L4-L5, there is adva nced spinal canal stenosis/thecal sac compression. Please see details above.
== END 2024-08-09 12:53 | disposition home or self-care (01) ==
LOC: MICIMG 12:54
PROVIDERS: PCP Family Medicine; Visit Provider Nurse Practitioner Family
DX: M47.26 Other spondylosis with radiculopathy, lumbar region (principal)
CPT/HCPCS: 72148

== ENCOUNTER 2024-09-30 09:16 | Outpatient (CLI) | payer MEDICARE, BC, SELFPAY ==
--- NOTE | ~2024-09-30 | MM_ITS ---
EXAMINATION: MM screening lucila BI w surinder HISTORY: Screening TECHNIQUE: Craniocaudal and mediolateral oblique 3-D tomosynthesis images were obtained and synthetic 2-D images were generated. CAD analysis was submitted and interpreted. COMPARISON: Comparison to multiple prior studies sequentially, with oldest reviewed study dated 12/16. BREAST PARENCHYMAL COMPOSITION: Not dense: There are scattered areas of fibroglandular density. FINDINGS: Stable benign bilateral breast calcifications. There is no evidence of suspicious mass, davide cification, or architectural distortion to suggest malignancy in either breast. There has been no salvador picious interval change. IMPRESSION: 1. No mammographic evidence of malignancy. 2. Recommend routine screening mammography in one year. BI-RADS Category 2: Benign finding(s). Reviewed, dictated and finalized at location B.
--- OUTSIDE RECORDS SUMMARY | 2024-09-30 09:20 | XMS_ITS | Clinical Summary ---
Author Organization [facility] Address [address] [place] [address] Care Team Providers Care Technical Services Analyst Name Role Phone Valorie Fatima MD Primary Care Provider Source Comments [facility],non-owned Affiliates and Associated Physician Practices is amultiple site organization consisting of ambulatory clinics and hospital sitesin [place], [place], [place] and [place]. This disclosure is being madepursuant to the Care Everywhere program and may not contain all information available regarding this patient. Last updated 17.[facility] Allergies Active Allergy Reactions Criticality Noted Date Comments Cephalosporins Rash Medium 06/22/2014 Penicillins Rash Medium 06/22/2014 Sulfa Drugs Rash Medium 06/22/2014 Medications * Be aware that medications may not be up to date on this document. Alwaysverify current medications with the patient. atenolol (TENORMIN) 25 MG tablet Take 25 [...] fluticasone propionate (FLONASE) 50 MCG/ACT nasal spray [place] 2 sprays into each nostril once daily 03/16/2021 Active icosapent ethyl (VASCEPA) 1 g capsule Take 1 g by mouth once daily 05/14/2021 Active hydrALAZINE (APRESOLINE) 100 MG tablet Take 100 mg by mouth 3 times daily Active Multiple Vitamins-Minera [place] (WOMENS HAIR, SKIN & NAILS PO) Take 1 tablet by mouth once daily Active Magnesium 400 MG Take 400 mg by mouth once daily Active Collagen-[place]- Hyaluronic Acid (MOVE FREE [employer]) 40-5-3.3 MG TABS Take 1 tablet by mouth once daily Active guaiFENesin ER 12hr (MUCINEX) 600 MG tablet Take 600 mg by mouth every 12 hours Active multivitamin (OCUVITE PRESERVISION) TABS tablet Take 2 tablets by mouth once daily Active cyanocobalamin (VITAMIN B-12) 1000 MCG tablet Take 1,000 mcg by mouth once daily Active vitamin D3 (CHOLECACIFEROL ) 125 MCG (5000 UT) Take 5,000 Units by mouth once daily Active polyvinyl alcohol-povidon e PF (REFRESH) 1.4-0.6 % ophthalmic solution Instill 1 drop into both eyes 3 times daily as needed Active cyclobenzaprine (FLEXERIL) 5 MG tabletIndicatio ns:Muscle Spasm Take 1 (one) tablet by mouth [...] drink = 0.6 oz pur e alcohol) Comments Unknown Sex and Gender Information Value Date Recorded Sex Assigned at Female 12/08/2020 4:26 PM CDT 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 Gender Identity Female 12/08/2020 4:26 PM CDT [...] 1:56 PM CDT Height 170.2 cm (5' 7) 05/30/2021 1:56 PM CDT Body Mass Index [...] - COLON CA SCREENING 1955 MAMMOGRAM 1955 HEPATITIS C SCREENING 11/24/1973 DTAP/TDAP/TD VACCINES (1 - Tdap) 11/28/1974 PNEUMOCOCCAL VACCINE 50+ (1 of 1 - PCV) 11/28/2005 ZOSTER VACCINE (1 of 2) 11/28/2005 COVID-19 VACCINE (4 - 2023-2 5 season) 2023 01/08/2021, 06/04/2020, 05/02/2020 DEPRESSION SCREENING 03/16/2024 INFLUENZA VACCINE (#1) 2024 , 11/05/2018, 12/13/2017 Respiratory Syncytial Virus (RSV) Vaccine Pt: or over 60 yrs (1 - 1-dose 75+ series) 11/28/2030 HEPATITIS B VACCINE Aged Out No longe r eligible based on patient's age to complete this topic HIB VACCINE Aged Out No longer eligi ble based on patient's age to complete this topic HPV VACCINE Aged Out No longer eligi ble based on patient's age to complete this topic MENINGOCOCCAL (Group B) VACCINE SHARED DECISION-MAKING Aged Out No longer eligible based on patient's age to complete this topic MENINGOCOCCAL GROUPS A/C/Y/W VACCINE Aged Out No longer eligible b ased on patient's age to complete this topic Insurance MEDICARE Care Teams Technical Services Analyst Relationship Specialty Start Date End Date Valorie Fatima MD [address] [place] [id number] PCP - General 05/21/21
--- OUTSIDE RECORDS SUMMARY | 2024-09-30 09:20 | XMS_ITS | Continuity of Care Document ---
Author Organization [facility] Address [address] [place] [address] Phone Care Team Providers Care Laboratory Machinist Name Role Phone Chen OD, Miguel Unavailable Unavailable Procedures Procedure Date Eye Exam & Treatment Refraction Eye Exam & Treatment Refraction No Charge Contact Lens Check Eye Exam, New Patient Refraction Advance Directives Directive Yes / No Effective Date File Name No Information Encounters Encounter Description Practice Location Reason(s) For Visit Diagnoses Date Provider Providers Copied on Encounter [facility], [address] [place] [address] [address], [place], [place], [id number], [place] tel:[phone] [facility] No Information 2-201 0 Chen OD Miguel. [address], [place], [place], [facility], [place]. tel:[phone] [facility], [address], [place], [place], [id number], [place] tel:[phone] [facility] No Information 7-200 9 Chen OD Miguel. [address], [place], [address], [place]. tel:[phone] [facility], [address] [place] [address] [address], [place], [place], [id number], [place] tel:[phone] [facility] No Information 6200 8 Chen OD Miguel. [address], [place], [address], [place]. tel:[phone] [facility], [address], [place], [place], [id number], [place] tel:[phone] [facility] No Information 7200 8 Chen OD Miguel. [address] , [address], [place], [address], [place]. tel:[phone] Family History Family Member Type Diagnosis Age At Onset No Information Payers Payer name Insurance type Covered democrat ID Fabiano maldonado(s) [employer] Plan CI [id number] Social History Type Description Quantity Date Captured [...]
--- OUTSIDE RECORDS SUMMARY | 2024-09-30 09:20 | XMS_ITS | Referral Summary ---
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
--- OUTSIDE RECORDS SUMMARY | 2024-09-30 09:20 | XMS_ITS | Clinical Summary ---
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
== END 2024-09-30 09:17 | disposition home or self-care (01) ==
PROVIDERS: PCP Family Medicine; Visit Provider Family Medicine
DX: Z12.31 Encounter for screening mammogram for malignant neoplasm of breast (principal)
CPT/HCPCS: 77063; 77067

== ENCOUNTER 2024-10-18 15:05 | Outpatient (CLI) | payer MEDICARE, BC, SELFPAY ==
--- NOTE | ~2024-10-18 | XR_ITS ---
Right Shoulder Technique: AP and scapular Y views were obtained. Clinical History: Arthropathy Findings: No fracture or dislocation is seen. Suggestion of high riding humeral head. The glenohumera l joint is intact. There is mild AC joint degenerative change. Soft tissues are unremarkable. Impression: Suggestion of high riding humeral head, which could indicate underlying rotator cuff tear. Mild AC joint degenerative change. Reviewed, dictated and finalized at location M. Impression: Suggestion of high riding humeral head, which could indicate underlying rotator cuff tear. Mild AC joint degenerative change.
== END 2024-10-18 15:06 | disposition home or self-care (01) ==
LOC: GOSHIMG 15:05
PROVIDERS: PCP Family Medicine; Visit Provider Orthopaedic Surgery
DX: M19.011 Primary osteoarthritis, right shoulder (principal)
CPT/HCPCS: 73030